=== PATIENT | male | born 1950 | race American Indian/Alaskan Native ===

== ENCOUNTER 2017-03-30 00:42 | Observation (INO) | payer SELFPAY ==
--- NOTE | 2017-03-30 01:06 | ED PDOC ---
HPI: General Adult Time Seen by Provider: 03/30/17 00:47 Chief Complaint (Nursing): Dizziness/Lightheaded Chief Complaint (Provider): Inguinal Hernia History Per: Patient History/Exam Limitations: no limitations Onset/Duration Of Symptoms: Days (365), Intermittent Episodes Have you had recent travel within the past 21 days to any of the following countries: [place], [place], [place] or [place]?: No Current Symptoms Are (Timing): Better Severity: Moderate Location: Right inginual hernia Quality: dizzy when the hernia is "out" Additional History Per: Patient Additional Complaint(s): 66 y/o male here this morning complaining of right inguinal hernia for the last year. He complains that he feels dizzy when the hernia is "out" and "fine" when the hernia is "in." Upon arrival to the ED, he reports that he is feeling better now that he is laying on the bed. Patient reports that the hernia has been evaluated multiple times in the past but he was unable to have it surgically repaired due to insurance issues. No other complaints at this time. Patient admits that he is homeless. Past Medical History Vital Signs: Last Vital Signs Temp 98.5 F 03/30/17 06:18 Pulse 60 03/30/17 06:26 Resp 16 03/30/17 06:26 BP 142/55 L 03/30/17 06:26 Pulse Ox 99 03/30/17 06:26 - Medical History PMH: HTN Denies: Chronic Kidney Disease Other PMH: Hernia - Surgical History Surgical History: No Surg Hx - Family History Family History: States: Unknown Family Hx - Living Arrangements Living Arrangements: Other (homeless) - Home Medications Home Medications: Ambulatory Orders Medication Instructions Recorded Dexamethasone/Tobramycin [Tobradex 1 drop OS QID #1 bottle 06/17/14 0.1%-0.3% 2.5 Ml] Ibuprofen [Motrin] 600 mg PO Q6H PRN #20 tab 06/23/14 - Allergies Allergies/Adverse Reactions: Allergies Allergy/AdvReac Type Severity Reaction Status Date / Time No Known Allergies Allergy Verified 03/29/14 12:25 Review of Systems ROS Statement: Except As Marked, All Systems Reviewed And Found Negative Physical Exam - Reviewed Nursing Documentation Reviewed: Yes Vital Signs Reviewed: Yes - Physical Exam Appears: Positive for: Well, Non-toxic, No Acute Distress Head Exam: Positive for: ATRAUMATIC, NORMAL INSPECTION, NORMOCEPHALIC Skin: Positive for: Normal Color, Warm, DRY Eye Exam: Positive for: EOMI, Normal appearance, PERRL ENT: Positive for: Normal ENT Inspection Neck: Positive for: Normal, Painless ROM Cardiovascular/Chest: Positive for: Regular Rate, Rhythm Respiratory: Positive for: CNT, Normal Breath Sounds Gastrointestinal/Abdominal: Positive for: Bowel Sounds, Soft, Hernia (right inguinal hernia, easy to reduce, soft, mild TTP) Back: Positive for: Normal Inspection Extremity: Positive for: Normal ROM Neurologic/Psych: Positive for: Alert, Oriented - ECG O2 Sat by Pulse Oximetry: 99 (RA) Pulse Ox Interpretation: Normal Medical Decision Making Medical Decision Making: Impression: 66 y/o male with right inguinal hernia. Plan: - UA - Ice pack - Motrin 01:49: patient placed in ED obs. 3:00: Patient reevaluated. He is resting comfortably, vitals are stable. 4:30: Vitals stable. Patient resting comfortably. Scribe Attestation Documented by Dorcas Cervantes acting as a scribe for Dr. Godwin Small. Provider Attestation: All medical record entries made by the Scribe were at my direction and personally dictated by me. I have reviewed the chart and agree that the record accurately reflects my personal performance of the history, physical exam, medical decision making, and the department course for this patient. I have also personally directed, reviewed, and agree with the discharge instructions and disposition. Disposition - Clinical Impression Clinical Impression: Inguinal hernia of right side without obstruction or gangrene - Disposition Disposition: Routine/Home Disposition Time: 02:00 Condition: STABLE
[2017-03-30 06:19] VITALS: BP 142/55; PULSE 60; TEMP 98.5
[2017-03-30 06:27] VITALS: RESP 16; O2SAT 99
== END 2017-03-30 06:26 | disposition home or self-care (01) ==
LOC: H.ER 00:42 → H.EROBSV 01:30
PROVIDERS: ADMIT Emergency Medicine; ATTEND Emergency Medicine
DX: K40.90 Unilateral inguinal hernia, without obstruction or gangrene, not specified as recurrent (principal); I10 Essential (primary) hypertension; Z59.0 Homelessness
CPT/HCPCS: 99284; G0378

== ENCOUNTER 2017-04-10 11:05 | Observation (INO) | payer SELFPAY ==
[2017-04-10] MEDS ORDERED: Albuterol-Ipratrop 3 mg / 0.5 (3 ml) UD INH STA (11:30)
--- NOTE | 2017-04-10 11:48 | RAD ---
HISTORY: cough COMPARISON: 06/17/2014. TECHNIQUE: Chest PA and lateral FINDINGS: LUNGS: No active pulmonary disease. PLEURA: No significant pleural effusion identified. No pneumothorax apparent. CARDIOVASCULAR: No radiographic findings to suggest acute or significant cardiovascular disease. OSSEOUS STRUCTURES: No significant abnormalities. VISUALIZED UPPER ABDOMEN: Normal. OTHER FINDINGS: None. IMPRESSION: No active disease. No significant interval change compared to the prior examination(s).
[2017-04-10] MEDS ORDERED: Albuterol-Ipratrop 3 mg / 0.5 (3 ml) UD ONE ×2 (12:03→16:02)
--- NOTE | 2017-04-10 12:03 | ED PDOC ---
HPI: CCC, URI, Sore Throat Time Seen by Provider: 04/10/17 11:25 Chief Complaint (Nursing): Cough, Cold, Congestion Chief Complaint (Provider): Cough History Per: Patient History/Exam Limitations: no limitations Onset/Duration Of Symptoms: Days (x 2) Current Symptoms Are (Timing): Still Present Additional Complaint(s): Jon is a 66 y/o male who presents to the ED complaining of cough with green- tinged sputum, for the past 2 days. Denies fever and chills. Patient notes that he has abdominal pain when coughing, where his hernia is. He is able to push it back in after coughing. PMD: Unknown Past Medical History Reviewed: Historical Data, Nursing Documentation, Vital Signs Vital Signs: Last Vital Signs Temp 98.1 F 04/10/17 14:31 Pulse 89 04/10/17 14:31 Resp 14 04/10/17 14:31 BP 143/72 04/10/17 14:31 Pulse Ox 98 04/10/17 14:31 - Medical History PMH: HTN Denies: Chronic Kidney Disease - Family History Family History: States: Unknown Family Hx - Social History Current smoker - smoking cessation education provided: Yes Alcohol: None Drugs: Denies - Home Medications Home Medications: Ambulatory Orders Medication Instructions Recorded No Known Home Med 04/10/17 - Allergies Allergies/Adverse Reactions: Allergies Allergy/AdvReac Type Severity Reaction Status Date / Time No Known Allergies Allergy Verified 03/29/14 12:25 Review of Systems ROS Statement: Except As Marked, All Systems Reviewed And Found Negative Constitutional: Negative for: Fever, Chills Respiratory: Positive for: Cough (with sputum). Negative for: Shortness of Breath Gastrointestinal: Positive for: Abdominal Pain (after coughing) Genitourinary Male: Positive for: Other (Hernia) Physical Exam - Reviewed Nursing Documentation Reviewed: Yes Vital Signs Reviewed: Yes - Physical Exam Appears: Positive for: Non-toxic, No Acute Distress Head Exam: Positive for: ATRAUMATIC, NORMAL INSPECTION, NORMOCEPHALIC Skin: Positive for: Normal Color, Warm, Dry Eye Exam: Positive for: EOMI, Normal appearance, PERRL Neck: Positive for: Normal, Painless ROM Cardiovascular/Chest: Positive for: Regular Rate, Rhythm. Negative for: Murmur Respiratory: Positive for: Rhonchi (bilaterally) Gastrointestinal/Abdominal: Positive for: Normal Exam, Soft, Other (right inguinal hernia, reducible). Negative for: Tenderness Back: Positive for: Normal Inspection Extremity: Positive for: Normal ROM. Negative for: Pedal Edema, Deformity Neurologic/Psych: Positive for: Alert, Oriented - Laboratory Results Result Diagrams: 04/10/17 11:50 04/10/17 11:50 - ECG ECG Rhythm: Positive for: Sinus Rhythm (NSR 89bpm no ectopy; T wave inversion lead II-avf/ V3 -V6 new compared to old ekg; reviewed by Dr. Chirinos) O2 Sat by Pulse Oximetry: 97 (RA) Pulse Ox Interpretation: Normal - Radiology X-Ray: Read By Radiologist (kvng) - Progress ED Course And Treament: DUONEB x 1 dose NS 1 liter wide open Solumedrol 125 mg i vx 1 dose d/w [facility] resident Medical Decision Making Medical Decision Making: Time: 11:29 Initial Plan: --EKG --Labs ordered --CXR --Patient given INH Duoneb treatment --Peak Flow pre/post treatment --Pending reevaluation Time: 11:47 Chest X-Ray: FINDINGS: LUNGS: No active pulmonary disease. PLEURA: No significant pleural effusion identified. No pneumothorax apparent. CARDIOVASCULAR: No radiographic findings to suggest acute or significant cardiovascular disease. OSSEOUS STRUCTURES: No significant abnormalities. VISUALIZED UPPER ABDOMEN: Normal. OTHER FINDINGS: None. IMPRESSION: No active disease. No significant interval change compared to the prior examination(s). Time: 12:45 --Patient started on IV fluids Time: 15:13 --Patient admitted inpatient to Observation Telemetry for new EKG changes & renal insufficiency, under the care of Dr. Nichole Scribe Attestation: Documented by April Morel, acting as a scribe for Lurdes Greco PA-C Provider Scribe Attestation: All medical record entries made by the Scribe were at my direction and personally dictated by me. I have reviewed the chart and agree that the record accurately reflects my personal performance of the history, physical exam, medical decision making, and the department course for this patient. I have also personally directed, reviewed, and agree with the discharge instructions and disposition. Disposition - Clinical Impression Clinical Impression: Bronchitis, Hernia, inguinal, Renal insufficiency, Acute electrocardiogram changes - Patient ED Disposition Is Patient to be Admitted: Yes - Disposition Disposition Time: 14:03 Condition: FAIR - Pt Status Changed To: Hospital Disposition Of: Observation
[2017-04-10 12:06] LABS: VENOUS BLOOD GAS BASE EXCESS 0.2 mmol/L (0.0-2.0); VENOUS BLOOD GAS PCO2 42 mmHg (40-60); VENOUS BLOOD PH 7.39 (7.32-7.43)
[2017-04-10 12:08] LABS: BASO % 0.2 % (0.0-2.0); HEMATOCRIT 45.4 % (35.0-51.0); LYMPH # 0.8 K/uL (1.0-4.3); LYMPH % 7.8 % (20.0-40.0); MEAN CORPUSCULAR HEMOGLOBIN 29.3 pg (27.0-31.0); MEAN CORPUSCULAR HGB CONC 33.3 g/dL (33.0-37.0); MEAN PLATELET VOLUME 9.5 fl (7.2-11.7); MONO % 10.6 % (0.0-10.0); NEUT % 81.4 % (50.0-75.0); NRBC % 0.2 % (0.0-0.0); PLATELET COUNT 150 K/uL (130-400); RED CELL DISTRIBUTION WIDTH 14.4 % (11.5-14.5); WHITE BLOOD COUNT 9.9 K/uL (4.8-10.8)
[2017-04-10 12:19] LABS: CALCIUM 9.3 mg/dL (8.4-10.2)
[2017-04-10 12:31] LABS: TROPONIN I 0.038 ng/mL (0.00-0.120)
[2017-04-10] MEDS ORDERED: Sodium Chloride 0.9% 1,000 ML IV STA (12:45)
[2017-04-10 14:57] LABS: NEUTROPHIL 75 % (42-75); REACTIVE LYMPHOCYTES 1 % (0-0); TOTAL CELLS COUNTED 100
[2017-04-10 14:58] LABS: LARGE PLATELETS PRESENT
--- NOTE | 2017-04-10 15:42 | CP.PCM.HP ---
History of Present Illness - History of Present Illness History of Present Illness: 66 year old gentleman presented with complaints of 1 week history of productive cough with associated chills and mild dyspnea. He reports that he has green sputum, cough induced by taking a deep breath. He is also complaining of pain in right inguinal area associated with an inguinal hernia. He was supposed to see a surgeon but never did. Associated with pain when he walks,however easily reducible. This pain is exacerbated by walking, when he feels the hernia the most. He is also complaining he has not been able to sleep for past couple of nights. He denies history of headaches, fevers, sore throat, nasal congestion, ear pain , chest pain, abdominal pain, nausea, vomiting, diarrhea, myalgias. No sick contacts. He is currently homeless. PMH: inguinal hernia Allergies: nkda Medications: none Present on Admission - Present on Admission Any Indicators Present on Admission: No Past Patient History - Infectious Disease Hx of Infectious Diseases: None - Past Social History Alcohol: None Drugs: Denies - CARDIAC Hx Hypertension: Yes - PULMONARY Hx Respiratory Disorders: No - NEUROLOGICAL Hx Neurological Disorder: No - HEENT Hx HEENT Problems: No - RENAL Hx Chronic Kidney Disease: No - ENDOCRINE/METABOLIC Hx Endocrine Disorders: No - HEMATOLOGICAL/ONCOLOGICAL Hx Blood Disorders: No - INTEGUMENTARY Hx Eczema: Yes - MUSCULOSKELETAL/RHEUMATOLOGICAL Hx Musculoskeletal Disorders: No - GASTROINTESTINAL Other/Comment: hernia - PSYCHIATRIC Hx Substance Use: No - SURGICAL HISTORY Other/Comment: hx of hernia - ANESTHESIA Hx Anesthesia: No Meds Allergies/Adverse Reactions: Allergies Allergy/AdvReac Type Severity Reaction Status Date / Time No Known Allergies Allergy Verified 03/29/14 12:25 Physical Exam - Constitutional Appears: Other (appears uncomforatable, coughing with green sputum production. ) - Head Exam Head Exam: ATRAUMATIC, NORMAL INSPECTION, NORMOCEPHALIC - Eye Exam Eye Exam: EOMI, Normal appearance, PERRL Additional comments: arcus senilis - Neck Exam Neck exam: Positive for: Normal Inspection - Respiratory Exam Respiratory Exam: Decreased Breath Sounds (patient unable to take full breath, cough induced with deep inspiration), Wheezes. absent: Accessory Muscle Use, Chest Wall Tenderness, Rales Additional comments: dyspneic - Cardiovascular Exam Cardiovascular Exam: REGULAR RHYTHM, +S1, +S2. absent: Bradycardia, Tachycardia - GI/Abdominal Exam GI & Abdominal Exam: Normal Bowel Sounds, Soft. absent: Distended, Guarding, Tenderness Additional comments: right inguinal hernia - Extremities Exam Extremities exam: Negative for: pedal edema, tenderness Additional comments: hyperpigmented skin changes bilateral lower extremities up to mid lower leg - Neurological Exam Neurological exam: Alert, CN II-XII Intact, Oriented x3, Reflexes Normal - Psychiatric Exam Psychiatric exam: Normal Affect, Normal Mood - Skin Skin Exam: Dry, Intact, Normal Color, Warm Results - Vital Signs Recent Vital Signs: Last Vital Signs Temp 98.1 F 04/10/17 14:31 Pulse 89 04/10/17 14:31 Resp 14 04/10/17 14:31 BP 143/72 04/10/17 14:31 Pulse Ox 98 04/10/17 14:31 - Labs Result Diagrams: 04/10/17 11:50 04/10/17 11:50 Assessment & Plan - Assessment and Plan (Free Text) Assessment: 66 year old male with 1 week history of productive cough likely 2' to acute bronchitis. He is currently afebrile without leukocytosis. He does have very decreased breath sounds and dyspneic with productive cough with green sputum however is saturating well on room air. He was found to have mild acute kidney injury, likely 2' dehydration due to increased insensible losses. #Acute Bronchitis #KOIR #DVT prophylaxis -Monitor respiratory status -[place]bs q4hrs scheduled -mucinex dm q12 -IV hydration, LR @ 150cc/hr -repeat bmp in AM
[2017-04-10] MEDS: Lactated Ringer's 1,000 ML IV SCH ×2 (16:03→23:05)
[2017-04-10] MEDS: Albuterol-Ipratrop 3 mg / 0.5 (3 ml) UD INH SCH ×2 (16:03→23:41)
[2017-04-10] MEDS: guaiFENesin-DM 600-30 mg ER Tab PO SCH (18:04)
[2017-04-11] MEDS: Albuterol-Ipratrop 3 mg / 0.5 (3 ml) UD INH SCH ×2 (04:56→07:37)
[2017-04-11] MEDS: Lactated Ringer's 1,000 ML IV SCH (05:33)
[2017-04-11 08:47] LABS: BLOOD UREA NITROGEN 24 mg/dl (9-20); CALCIUM 8.9 mg/dL (8.4-10.2); CARBON DIOXIDE 29 mmol/L (22-30); CHLORIDE 103 mmol/L (98-107); GFR AFRICAN-AMERICAN > 60; GLUCOSE,RANDOM 158 mg/dL (75-110); POTASSIUM 4.1 MMOL/L (3.6-5.0); SODIUM 137 mmol/l (132-148)
[2017-04-11] MEDS: guaiFENesin-DM 600-30 mg ER Tab PO SCH ×2 (08:52→17:00)
[2017-04-11] MEDS ORDERED: Enoxaparin 40 mg Syringe SC SCH (09:00)
--- NOTE | 2017-04-11 13:19 | CP.PCM.DIS ---
Provider - Provider Date of Admission: 04/10/17 15:13 Attending physician: Mable Nichole MD Primary care physician: [facility] Time Spent in preparation of Discharge (in minutes): 25 Diagnosis - Discharge Diagnosis (1) Bronchitis Status: Acute Hospital Course - Lab Results Lab Results: Most Recent Lab Values WBC 9.9 K/uL (4.8-10.8) 04/10/17 11:50 RBC 5.15 Mil/uL (4.40-5.90) 04/10/17 11:50 Hgb 15.1 g/dL (12.0-18.0) 04/10/17 11:50 Hct 45.4 % (35.0-51.0) 04/10/17 11:50 MCV 88.0 fl (80.0-94.0) 04/10/17 11:50 MCH 29.3 pg (27.0-31.0) 04/10/17 11:50 MCHC 33.3 g/dL (33.0-37.0) 04/10/17 11:50 RDW 14.4 % (11.5-14.5) 04/10/17 11:50 Plt Count 150 K/uL (130-400) 04/10/17 11:50 MPV 9.5 fl (7.2-11.7) 04/10/17 11:50 Neut % (Auto) 81.4 % (50.0-75.0) H 04/10/17 11:50 Lymph % (Auto) 7.8 % (20.0-40.0) L 04/10/17 11:50 [place] % (Auto) 10.6 % (0.0-10.0) H 04/10/17 11:50 Eos % (Auto) 0.0 % (0.0-4.0) 04/10/17 11:50 Baso % (Auto) 0.2 % (0.0-2.0) 04/10/17 11:50 Neut # 8.0 K/uL (1.8-7.0) H 04/10/17 11:50 Lymph # 0.8 K/uL (1.0-4.3) L 04/10/17 11:50 [place] # 1.0 K/uL (0.0-0.8) H 04/10/17 11:50 Eos # 0.0 K/uL (0.0-0.7) 04/10/17 11:50 Baso # 0.0 K/uL (0.0-0.2) 04/10/17 11:50 Neutrophils % (Manual) 75 % (42-75) 04/10/17 11:50 Band Neutrophils % 5 % (0-2) H 04/10/17 11:50 Lymphocytes % (Manual) 6 % (20-50) L 04/10/17 11:50 Reactive Lymphs % 1 % (0-0) H 04/10/17 11:50 Monocytes % (Manual) 12 % (0-10) H 04/10/17 11:50 Platelet Estimate Normal (NORMAL) 04/10/17 11:50 Large Platelets Present 04/10/17 11:50 RBC Morphology Normal (NORMAL) 04/10/17 11:50 pO2 34 mm/Hg (30-55) 04/10/17 11:34 VBG pH 7.39 (7.32-7.43) 04/10/17 11:34 VBG pCO2 42 mmHg (40-60) 04/10/17 11:34 VBG HCO3 24.0 mmol/L 04/10/17 11:34 VBG Total CO2 26.7 mmol/L (22-28) 04/10/17 11:34 VBG O2 Sat (Calc) 66.6 % (40-65) H 04/10/17 11:34 VBG Base Excess 0.2 mmol/L (0.0-2.0) 04/10/17 11:34 VBG Potassium 3.9 mmol/L (3.6-5.2) 04/10/17 11:34 Sodium 133.0 mmol/L (132-148) 04/10/17 11:34 Chloride 100.0 mmol/L (98-107) 04/10/17 11:34 Glucose 142 mg/dL (75-110) H 04/10/17 11:34 Lactate 2.1 mmol/L (0.7-2.1) 04/10/17 11:34 FiO2 21.0 % 04/10/17 11:34 Sodium 137 mmol/l (132-148) 04/11/17 05:30 Potassium 4.1 MMOL/L (3.6-5.0) 04/11/17 05:30 Chloride 103 mmol/L (98-107) 04/11/17 05:30 Carbon Dioxide 29 mmol/L (22-30) 04/11/17 05:30 Anion Gap 10 (10-20) 04/11/17 05:30 BUN 24 mg/dl (9-20) H 04/11/17 05:30 Creatinine 1.0 mg/dL (0.8-1.5) 04/11/17 05:30 Est GFR ( Amer) > 60 04/11/17 05:30 Est GFR (Non-Af Amer) > 60 04/11/17 05:30 Random Glucose 158 mg/dL (75-110) H 04/11/17 05:30 Calcium 8.9 mg/dL (8.4-10.2) 04/11/17 05:30 Troponin I < 0.0120 ng/mL (0.00-0.120) 04/11/17 10:00 NT-Pro-B Natriuret Pep 422 pg/ml (0-900) 04/10/17 11:50 Venous Blood Potassium 3.9 mmol/L (3.6-5.2) 04/10/17 11:34 - Hospital Course Hospital Course: 66 yo M w PMHx of 1 week history of productive cough likely due to acute bronchitis. Afebrile, No elevated WBC, CXR showed no acute disease. Acute respiratory problems greatly improved s/p Duoneb Q4 ROSEANN and methylprednisolone/ prednisone therapies. Pt able to have full conversations including loud laughter by time of discharge. Discharge Exam - Head Exam Head Exam: ATRAUMATIC, NORMAL INSPECTION, NORMOCEPHALIC - Eye Exam Eye Exam: EOMI Pupil Exam: PERRL - Respiratory Exam Respiratory Exam: Wheezes (mild), NORMAL BREATHING PATTERN, UNREMARKABLE Additional comments: speaks full senetences - Cardiovascular Exam Cardiovascular Exam: REGULAR RHYTHM, +S1, +S2, +S4 - GI/Abdominal Exam GI & Abdominal Exam: Normal Bowel Sounds, Soft, Unremarkable. absent: Tenderness - Extremities Exam Extremities exam: normal inspection - Neurological Exam Neurological exam: Alert, Oriented x3 - Skin Skin Exam: Dry, Intact, Normal Color, Warm Discharge Plan - Discharge Medications Prescriptions: Albuterol HFA [Ventolin HFA 90 mcg/actuation (8 g)] 1 puff IH Q4H PRN #1 inhaler PRN Reason: Other predniSONE [predniSONE Tab] 20 mg PO DAILY #5 tab - Follow Up Plan Condition: STABLE Disposition: HOME/ ROUTINE Patient education suggested?: Yes Instructions: Acute Bronchitis (GEN) Additional Instructions: f/u w PMD in 1 week of discharge Take prednisone 20mg Daily for 5 days Albuterol inhaler as needed Return to ED if severe wheezing, shortness of breath, or pain when breathing returns
[2017-04-11] MEDS ORDERED: Albuterol-Ipratrop 3 mg / 0.5 (3 ml) UD INH SCH (14:00)
[2017-04-11 15:34] VITALS: BP 160/69; PULSE 80; RESP 20; TEMP 97.6; O2SAT 98
[2017-04-11] MEDS ORDERED: Pneumococcal 23-Valent Vaccine IM ONE (18:45)
--- NOTE | 2017-04-12 11:21 | CARD ---
APPROVED REPORT EKG Measurement Heart [id number] <Conclusion> Normal sinus rhythm Right atrial enlargement Left ventricular hypertrophy with repolarization abnormality Abnormal ECG
== END 2017-04-11 19:00 | disposition home or self-care (01) ==
LOC: H.ER 11:05 → H.ERHOLD 15:13 → H.TEL 17:02 → UNDODISOB 04-11 13:30
PROVIDERS: ADMIT Family Medicine Geriatric Medicine; ATTEND Family Medicine Geriatric Medicine
DX: J20.9 Acute bronchitis, unspecified (principal); E86.0 Dehydration; F17.200 Nicotine dependence, unspecified, uncomplicated; I10 Essential (primary) hypertension; K40.90 Unilateral inguinal hernia, without obstruction or gangrene, not specified as recurrent; N17.9 Acute kidney failure, unspecified; Z59.0 Homelessness; L30.9 Dermatitis, unspecified; J02.9 Acute pharyngitis, unspecified; R10.9 Unspecified abdominal pain
CPT/HCPCS: 36415; 71020; 80048; 82803; 83880; 84484; 85025; 87040; 93005; 94640; 96361; 96372; 96374; 99285; G0378; J1650; J2930; J7040; J7120

== ENCOUNTER 2017-10-11 16:02 | Inpatient (IN) | payer OTHER ==
--- NOTE | 2017-10-11 17:06 | ED PDOC ---
HPI: General Adult Time Seen by Provider: 10/11/17 16:10 Chief Complaint (Nursing): Abdominal Pain Chief Complaint (Provider): Groin pain History Per: Patient History/Exam Limitations: no limitations Onset/Duration Of Symptoms: Days (x1) Current Symptoms Are (Timing): Still Present Additional Complaint(s): Jon Linn is a 67 year old male, with a past medical history of right inguinal hernia due for repair for a couple of years and intermittent discomfort since, who was brought to the emergency department via EMS complaining of a more persistent pain over the last day. Patient states he is unable to reduce hernia. He denies any vomiting, diarrhea, fever, chills or urinary symptoms. No further medical complaints. PMD: None provided. Past Medical History Reviewed: Historical Data, Nursing Documentation, Vital Signs Vital Signs: Last Vital Signs Temp 97.7 F 10/11/17 16:04 Pulse 80 10/11/17 16:04 Resp 16 10/11/17 16:04 BP 175/82 H 10/11/17 16:04 Pulse Ox 99 10/11/17 18:21 - Medical History PMH: HTN Denies: Chronic Kidney Disease Other PMH: Right inguinal hernia - Surgical History Surgical History: No Surg Hx - Family History Family History: States: Unknown Family Hx - Social History Current smoker - smoking cessation education provided: Yes (Current some days) Alcohol: None Drugs: Denies - Home Medications Home Medications: Ambulatory Orders Medication Instructions Recorded Albuterol HFA [Ventolin HFA 90 1 puff IH Q4H PRN #1 inhaler 04/11/17 mcg/actuation (8 g)] predniSONE [predniSONE Tab] 20 mg PO DAILY #5 tab 04/11/17 - Allergies Allergies/Adverse Reactions: Allergies Allergy/AdvReac Type Severity Reaction Status Date / Time No Known Allergies Allergy Verified 03/29/14 12:25 Review of Systems ROS Statement: Except As Marked, All Systems Reviewed And Found Negative Constitutional: Negative for: Fever, Chills Gastrointestinal: Negative for: Vomiting, Diarrhea Genitourinary Male: Positive for: Other (Groin pain). Negative for: Dysuria, Frequency, Incontinence Physical Exam - Reviewed Nursing Documentation Reviewed: Yes Vital Signs Reviewed: Yes - Physical Exam Appears: Positive for: Non-toxic, No Acute Distress Head Exam: Positive for: ATRAUMATIC, NORMAL INSPECTION, NORMOCEPHALIC Skin: Positive for: Normal Color, Warm, Dry Eye Exam: Positive for: Normal appearance, EOMI, PERRL Neck: Positive for: Painless ROM, Supple Cardiovascular/Chest: Positive for: Regular Rate, Rhythm. Negative for: Murmur Respiratory: Positive for: Normal Breath Sounds. Negative for: Respiratory Distress Gastrointestinal/Abdominal: Positive for: Normal Exam, Soft. Negative for: Tenderness Male Genital Exam: Positive for: hernia mass (Inguinal hernia mildly tender to palpation, partially reducible.) Back: Positive for: Normal Inspection. Negative for: L CVA Tenderness, R CVA Tenderness Extremity: Positive for: Normal ROM. Negative for: Deformity, Swelling Neurologic/Psych: Positive for: Alert, Oriented - Laboratory Results Result Diagrams: 10/11/17 18:14 10/11/17 18:14 - ECG O2 Sat by Pulse Oximetry: 99 (RA) Pulse Ox Interpretation: Normal Medical Decision Making Medical Decision Making: Initial impression: Inguinal hernia Initial Plan: --Abd Pelvis PO & IV Contrast --CMP --General Surgery consult --CBC w/ differential --Omnipaque 240 50 ml PO --Reevaluation -Spoke with Dr. Mann who will have operating room surgical technician evaluate. Surgery resident in ED, see consult ~ Scribe Attestation: Documented by Elie Iqbal, acting as a scribe for Alexey Demarco MD. Provider Scribe Attestation: All medical record entries made by the Scribe were at my direction and personally dictated by me. I have reviewed the chart and agree that the record accurately reflects my personal performance of the history, physical exam, medical decision making, and the department course for this patient. I have also personally directed, reviewed, and agree with the discharge instructions and disposition. Disposition - Clinical Impression Clinical Impression: Inguinal hernia - Patient ED Disposition Is Patient to be Admitted: Transfer of Care - Disposition Disposition: Transfer of Care Disposition Time: 19:00 Condition: STABLE Forms: [facility] (Estonian) Patient Signed Over To: Danny Barnett Handoff Comments: pending CT and dispo. PMD: paty [facility]
[2017-10-11] MEDS ORDERED: Iohexol 240 (50 ml) PO ONE (17:25)
--- NOTE | 2017-10-11 17:49 | CP.PCM.CON ---
<Barrington Newell - Last Filed: 10/12/17 06:24> History of Present Illness - History of Present Illness History of Present Illness: General Surgery Consult Note for Dr. Mann Reason for consult: R inguinal hernia 67 M with no significant PMH presents to [facility] for complain of abdominal pain and R inguinal hernia. Patient was seen and evaluated in the ED. Patient states that he has had these symptoms intermittently for almost 4 years. He states that he was suppose to have surgery but it was canceled last minute for an unknown reason then never followed up. Patient states that his symptoms this time had a sudden onset and have been getting progressively worse over the last day. Patient states he is unable to reduce the hernia this time. He rates pain as moderate. He describes the pain as constant and sharp located in the R groin without radiation. He reports that activity and lifting exacerbates his pain while nothing alleviates it. Denies skin changes, change in bowel habit, change in stool caliber, fever/chills, melena, hematochezia, straining. PMD: Clinic patient PMH: R ingunial hernia Meds: Denies Allergy: NDKA PSH: Denies FH: non-contributory Social: daily smoker - ~1 pack/day for years, denies EtOH/illicit drug use, homeless Review of Systems - Review of Systems All systems: reviewed and no additional remarkable complaints except (12 point ROS negative unless otherwise stated in HPI) Past Patient History - Infectious Disease Hx of Infectious Diseases: None - Past Medical History & Family History Past Medical History?: Yes - Past Social History Alcohol: None Drugs: Denies - CARDIAC Hx Hypertension: Yes - PULMONARY Hx Respiratory Disorders: No - NEUROLOGICAL Hx Neurological Disorder: No - HEENT Hx HEENT Problems: No - RENAL Hx Chronic Kidney Disease: No - ENDOCRINE/METABOLIC Hx Endocrine Disorders: No - HEMATOLOGICAL/ONCOLOGICAL Hx Blood Disorders: No - INTEGUMENTARY Hx Eczema: Yes - MUSCULOSKELETAL/RHEUMATOLOGICAL Hx Musculoskeletal Disorders: No - GASTROINTESTINAL Other/Comment: hernia - PSYCHIATRIC Hx Substance Use: No - SURGICAL HISTORY Other/Comment: hx of hernia - ANESTHESIA Hx Anesthesia: No Meds Allergies/Adverse Reactions: Allergies Allergy/AdvReac Type Severity Reaction Status Date / Time No Known Allergies Allergy Verified 03/29/14 12:25 Physical Exam - Constitutional Appears: No Acute Distress - Head Exam Head Exam: ATRAUMATIC, NORMOCEPHALIC - Eye Exam Eye Exam: EOMI, Normal appearance Pupil Exam: PERRL - ENT Exam ENT Exam: Mucous Membranes Moist - Respiratory Exam Respiratory Exam: NORMAL BREATHING PATTERN - Cardiovascular Exam Cardiovascular Exam: REGULAR RHYTHM - GI/Abdominal Exam GI & Abdominal Exam: Hernia (R inguinal hernia), Normal Bowel Sounds, Soft, Tenderness (RLQ/R groin). absent: Distended, Firm, Guarding, Rebound, Rigid - Extremities Exam Extremities exam: Positive for: normal capillary refill, pedal pulses present. Negative for: calf tenderness - Back Exam Back exam: absent: CVA tenderness (L), CVA tenderness (R) - Neurological Exam Neurological exam: Alert, CN II-XII Intact, Oriented x3 - Psychiatric Exam Psychiatric exam: Normal Affect, Normal Mood - Skin Skin Exam: Dry, Intact, Normal Color, Warm Results - Vital Signs Recent Vital Signs: Last Vital Signs Temp 97.7 F 10/11/17 16:04 Pulse 80 10/11/17 16:04 Resp 16 10/11/17 16:04 BP 175/82 H 10/11/17 16:04 Pulse Ox 99 10/11/17 17:20 - Labs Result Diagrams: 10/11/17 18:14 10/11/17 18:14 Assessment & Plan - Assessment and Plan (Free Text) Assessment: 67 M with R inguinal Hernia Plan: -Plan for OR on Wednesday for R inguinal hernia repair -Will pre op patient in preparation -Analgesics PRN -Medical management as per primary -Discussed with Dr. Mackenzie Newell PGY1 - Date & Time Date: 10/11/17 Time: 05:30 <Calvin Mann - Last Filed: 10/13/17 19:34> Meds - Medications Medications: Current Medications Acetaminophen (Tylenol 325mg Tab) 650 mg PO Q6 PRN PRN Reason: Pain, Mild (1-3) Docusate Sodium (Colace) 100 mg PO BID [facility] Last Admin: 10/13/17 17:00 Dose: Not Given Hydromorphone HCl (Dilaudid) 0.5 mg IVP Q3 PRN PRN Reason: Pain, severe (8-10) Lactated Ringer's (Lactated Ringer's) 1,000 mls @ 100 mls/hr IV .Q10H [facility] Stop: 10/15/17 10:00 Last Admin: 10/13/17 18:23 Dose: Not Given Lactated Ringer's (Lactated Ringer's) 1,000 mls @ 75 mls/hr IV .[id number] [facility] Nicotine (Nicoderm Cq) 1 patch TD DAILY [facility] Last Admin: 10/13/17 08:18 Dose: Not Given Ondansetron HCl (Zofran Inj) 4 mg IVP Q6 PRN PRN Reason: Nausea/Vomiting Oxycodone HCl (Oxycodone Immediate Release Tab) 5 mg PO Q6 PRN PRN Reason: Pain, moderate (4-7) Results - Vital Signs Recent Vital Signs: Last Vital Signs Temp 98.1 F 10/13/17 18:05 Pulse 63 10/13/17 18:05 Resp 18 10/13/17 18:05 BP 131/51 L 10/13/17 18:05 Pulse Ox 96 10/13/17 18:05 - Labs Result Diagrams: 10/13/17 07:35 10/13/17 07:35 Labs: Laboratory Results - last 24 hr 10/13/17 10/13/17 07:35 07:35 WBC 5.9 RBC 4.43 Hgb 13.0 Hct 39.3 MCV 88.8 MCH 29.5 MCHC 33.2 RDW 14.6 H Plt Count 147 Sodium 142 Potassium 4.2 Chloride 104 Carbon Dioxide 26 Anion Gap 16 BUN 20 Creatinine 1.1 Est GFR ( Amer) > 60 Est GFR (Non-Af Amer) > 60 Random Glucose 98 Calcium 8.6 Attending/Attestation - Attestation I have personally seen and examined this patient.: Yes I have fully participated in the care of the patient.: Yes I have reviewed all pertinent clinical information: Yes Notes (Text): Pt was seen and examined at bedside Agree with above note and assessment Pt with Right Inguinal hernia C/o right groin pain Abdomen: Soft ,NT, Right inguinal hernia present Labs and radiology reviewed Ass: Right Inguinal hernia with right groin pain Plan: OR for Right inguinal hernia repair with mesh Consent NPO, IVF IV antibiotics pre op c.w current mx Plan d.w pt in detail Risk and benefit explained in detail.
[2017-10-11] MEDS ORDERED: Iohexol 240 (50 ml) ONE (18:14)
[2017-10-11 18:17] LABS: BASO % 0.8 % (0.0-2.0); EOS # 0.1 K/uL (0.0-0.7); EOS % 1.6 % (0.0-4.0); HEMOGLOBIN 13.8 g/dL (12.0-18.0); LYMPH # 2.2 K/uL (1.0-4.3); LYMPH % 33.7 % (20.0-40.0); MEAN CELL VOLUME 89.1 fl (80.0-94.0); MEAN CORPUSCULAR HEMOGLOBIN 29.4 pg (27.0-31.0); MEAN CORPUSCULAR HGB CONC 32.9 g/dL (33.0-37.0); MEAN PLATELET VOLUME 9.7 fl (7.2-11.7); MONO # 0.5 K/uL (0.0-0.8); MONO % 7.6 % (0.0-10.0); NEUT # 3.6 K/uL (1.8-7.0); NEUT % 56.3 % (50.0-75.0); NRBC % 0.3 % (0.0-0.0); RBC 4.69 Mil/uL (4.40-5.90); RED CELL DISTRIBUTION WIDTH 14.3 % (11.5-14.5); WHITE BLOOD COUNT 6.4 K/uL (4.8-10.8)
[2017-10-11 18:31] LABS: ALB/GLOB RATIO 1.2 (1.0-2.1); ALT/SGPT 24 U/L (21-72); AST/SGOT 22 U/L (17-59); BLOOD UREA NITROGEN 14 mg/dl (9-20); CALCIUM 9.6 mg/dL (8.4-10.2); GFR AFRICAN-AMERICAN > 60; GFR NON-AFRICAN AMERICAN > 60
[2017-10-11] MEDS ORDERED: Iohexol 300 100 ML IJ ONE (20:12)
--- NOTE | 2017-10-11 22:28 | CT ---
EXAM: CT Abdomen and Pelvis With Intravenous Contrast CLINICAL HISTORY: 67 years old, male; Pain; Abdominal pain; Localized; Lower; Patient HX: Rt inguinal hernia; Additional info: R groin pain, hernia TECHNIQUE: Axial computed tomography images of the abdomen and pelvis with intravenous contrast. All CT scans at this facility use one or more dose reduction techniques, viz.: automated exposure control; ma/kV adjustment per patient size (including targeted exams where dose is matched to indication; i.e. head); or iterative reconstruction technique. Coronal and sagittal reformatted images were created and reviewed. CONTRAST: 90 mL of [id number] administered intravenously. COMPARISON: CT - ABD PELVIS PO IV CONTRAST 2014-06-23 05:43 FINDINGS: Limitations: Streak artifact - mild. Lower thorax: Minimal atelectasis. ABDOMEN: Liver: Few probable hepatic cysts. Fatty infiltration. Gallbladder and bile ducts: No calcified stones. No ductal dilation. Pancreas: No ductal dilation. No mass. Spleen: No splenomegaly. Adrenals: Mild hypertrophy of adrenal glands. Kidneys and ureters: No mass. No hydronephrosis. Stomach and bowel: Moderate to large amount of stool within proximal to mid colon. Probable underdistention of distal sigmoid colon. No definite mural thickening. No obstruction. Appendix: No findings to suggest acute appendicitis. PELVIS: Bladder: Unremarkable. Reproductive: Mildly enlarged prostate. Small hydroceles and scrotal calcification. ABDOMEN and PELVIS: Intraperitoneal space: No significant fluid collection. No free air. Bones/joints: No acute fracture. Soft tissues: Small RIGHT inguinal hernia with peripheral soft tissue thickening and small fluid, slightly increased from previously examination. Vasculature: [id number] atherosclerotic disease. No aneurysm. Lymph nodes: No pathologically enlarged lymph nodes. IMPRESSION: 1. Right inguinal hernia. 2. Incidental/non-acute findings are described above.
[2017-10-11] MEDS ORDERED: HYDROmorphone 0.5 mg/0.5 ml ISec IVP PRN (23:05)
--- NOTE | 2017-10-11 23:22 | ED PDOC ---
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
--- NOTE | 2017-10-11 23:51 | CP.PCM.HP ---
History of Present Illness - History of Present Illness History of Present Illness: "my hernia isnt coming down and it hurts more" 67 y/o male, with no significant medical history presented to [facility] ED complaining of worsening right groin pain. He reports having a hernia for approx 4 years, and has been able to reduce it if it have him any issues. Over the past few days he reports it has been bothering him more and more. Pain is located in the right groin region, it is intermittent, 5/10, with 8/10 at times , sharp and burning in character, without radiation. It is alleviated with rest and lying back, but aggravated with prolonged ambulation, deep inspiration, climbing up stairs, and lifting objects. He has not taken any medications. Denies any fever/chills, headaches, changes in vision, CP/SOB/Palpitations, N/V/ D/C, urinary symptoms, melena/hematocheiza, numbness/tingling, rash. PMD: none PMHx: right inguinal hernia x 4 years Meds: none PSurgHx: none FamilyHx: denies any family history of CA, Stroke, GA, DM, CAD Next of Kin: samir Murphy, [phone] Code Status: full code ED Course: Vitals on presentation: T 97.7 F, HR 80, BP 175/82, RR 16, POX 99% RA Labs CBC: wnl CMP: BUN/Cr: 14/1.1 Imaging CXR Abd/pelvic CT: right inguinal hernia, mild/moderate atherosclerotic disease, no enlarged lymph nodes Consult Gen surg Present on Admission - Present on Admission Any Indicators Present on Admission: No History of DVT/PE: No History of Uncontrolled Diabetes: No Urinary Catheter: No Review of Systems - Constitutional Constitutional: absent: As Per HPI, Anorexia, Chills, Daytime Sleepiness, Excessive Sweating, Fatigue, Fever, Frequent Falls, Headache, Increased Appetite , Lethargy, Malaise, Night Sweats, Snoring, Sleep Apnea, Weight Gain, Weight Loss, Weakness, Other - EENT Eyes: absent: As Per HPI, Blind Spots, Blurred Vision, Change in Vision, Decreased Night Vision, Diplopia, Discharge, Dry Eye, Exophthalmos, Floaters, Irritation, Itchy Eyes, Loss of Peripheral Vision, Pain, Photophobia, Requires Corrective Lenses, Sees Flashes, Spots in Vision, Tunnel Vision, Other Visual Disturbances, Loss of Vision, Other Ears: absent: As Per HPI, Decreased Hearing, Ear Discharge, Ear Pain, Tinnitus, Abnormal Hearing, Disequilibrium, Dizziness, Other Nose/Mouth/Throat: absent: As Per HPI, Epistaxis, Nasal Congestion, Nasal Discharge, Nasal Obstruction, Nasal Trauma, Nose Pain, Post Nasal Drip, Sinus Pain, Sinus Pressure, Bleeding Gums, Change in Voice, Dental Pain, Dry Mouth, Dysphagia, Halitosis, Hoarsness, Lip Swelling, Mouth Lesions, Mouth Pain, Odynophagia, Sore Throat, Throat Swelling, Tongue Swelling, Facial Pain, Neck Pain, Neck Mass, Other - Cardiovascular Cardiovascular: absent: As Per HPI, Acrocyanosis, Chest Pain, Chest Pain at Rest , Chest Pain with Activity, Claudication, Diaphoresis, Dyspnea, Dyspnea on Exertion, Edema, Irregular Heart Rhythm, Pain Radiating to Arm/Neck/Jaw, Leg Edema, Leg Ulcers, Lightheadedness, Orthopnea, Palpitations, Paroxysmal Nocturnal Dyspnea, Pedal Edema, Radiating Pain, Rapid Heart Rate, Slow Heart Rate, Syncope, Other - Respiratory Respiratory: absent: As Per HPI, Cough, Dyspnea, Hemoptysis, Dyspnea on Exertion , Wheezing, Snoring, Stridor, Pain on Inspiration, Chest Congestion, Excessive Mucous Production, Change in Mucous Color, Pain with Coughing, Other - Gastrointestinal Gastrointestinal: Abdominal Pain. absent: As Per HPI, Belching, Bloating, Change in Bowel Habits, Change in Stool Character, Coffee Ground Emesis, Constipation, Cramping, Diarrhea, Dyspepsia, Dysphagia, Early Satiety, Excessive Flatus, Fecal Incontinence, Heartburn, Hematemesis, Hematochezia, Loose Stools, Melena, Nausea, Odynophagia, Temesmus, Vomiting, Other - Genitourinary Genitourinary: absent: As Per HPI, Change in Urinary Stream, Difficulty Urinating, Dysuria, Flank Pain, Hematuria, Pyuria, Nocturia, Urinary Incontinence, Urinary Frequency, Urinary Hesitance, Urinary Urgency, Voiding Freq/Small Amts, Freq UTI, Hx Renal/Bladder Calculi, Hx /Renal Surgery, Bladder Distension, Other - Musculoskeletal Musculoskeletal: absent: As Per HPI, Abnormal Gait, Arthralgias, Atrophy, Back Pain, Deformity, Joint Swelling, Limited Range of Motion, Loss of Height, Muscle Cramps, Muscle Weakness, Myalgias, Neck Pain, Numbness, Radiating Pain into Limb, Stiffness, Tingling, Other - Integumentary Integumentary: Dry Skin. absent: As Per HPI, Acne, Alopecia, Bleeding Lesions, Change in Hair, Change in Nails, Change in Pigmentation, Changing Lesions, Erythema, Furuncle, Hirsutism, Lesions, New Lesions, Non-Healing Lesions, Photosensitivity, Pruritus, Rash, Skin Pain, Skin Ulcer, Sores, Striae, Swelling , Unusual Bruising, Wounds, Jaundice, Other - Neurological Neurological: absent: As Per HPI, Abnormal Gait, Abnormal Hearing, Abnormal Movements, Abnormal Speech, Behavioral Changes, Burning Sensations, Confusion, Convulsions, Disequilibrium, Dizziness, Numbness, Focal Weakness, Frequent Falls , Headaches, Lack of Coordination, Loss of Vision, Memory Loss, Paresthesias, Radicular Pain, Restless Legs, Sensory Deficit, Syncope, Tingling, Tremor, Vertigo, Weakness, Other Visual Disturbances, Other - Psychiatric Psychiatric: absent: As Per HPI, Abnormal Sleep Pattern, Anhedonia, Anxiety, Auditory Hallucinations, Behavioral Changes, Change in Appetite, Change in Libido, Confusion, Depression, Difficulty Concentrating, Hallucinations, Homicidal Ideation, Hopelessness, Irritability, Memory Loss, Mood Swings, Panic Attacks, Paranoia, Suicidal Ideation, Visual Hallucinations, Tactile Hallucinations, Other Past Patient History - Infectious Disease Hx of Infectious Diseases: None - Past Medical History & Family History Past Medical History?: Yes - Past Social History Smoking Status: Heavy Smoker > 10 Cigarettes Daily Alcohol: None Drugs: Denies Home Situation {Lives}: Homeless - CARDIAC Hx Hypertension: Yes - PULMONARY Hx Respiratory Disorders: No - NEUROLOGICAL Hx Neurological Disorder: No - HEENT Hx HEENT Problems: No - RENAL Hx Chronic Kidney Disease: No - ENDOCRINE/METABOLIC Hx Endocrine Disorders: No - HEMATOLOGICAL/ONCOLOGICAL Hx Blood Disorders: No - INTEGUMENTARY Hx Eczema: Yes - MUSCULOSKELETAL/RHEUMATOLOGICAL Hx Musculoskeletal Disorders: No - GASTROINTESTINAL Other/Comment: hernia - PSYCHIATRIC Hx Substance Use: No - SURGICAL HISTORY Other/Comment: hx of hernia - ANESTHESIA Hx Anesthesia: No Meds Allergies/Adverse Reactions: Allergies Allergy/AdvReac Type Severity Reaction Status Date / Time No Known Allergies Allergy Verified 03/29/14 12:25 Physical Exam - Constitutional Appears: Non-toxic, No Acute Distress, Unkempt - Head Exam Head Exam: ATRAUMATIC, NORMAL INSPECTION, NORMOCEPHALIC - Eye Exam Eye Exam: EOMI, Normal appearance, PERRL. absent: Conjunctival injection, Nystagmus, Scleral icterus Pupil Exam: NORMAL ACCOMODATION, PERRL - ENT Exam ENT Exam: Mucous Membranes Moist, Normal Exam - Neck Exam Neck exam: Positive for: Full Rom, Normal Inspection. Negative for: Lymphadenopathy, Tenderness - Respiratory Exam Respiratory Exam: Clear to Auscultation Bilateral, NORMAL BREATHING PATTERN. absent: Decreased Breath Sounds, Prolonged Expiratory Phase, Rales, Rhonchi, Wheezes, Respiratory Distress - Cardiovascular Exam Cardiovascular Exam: REGULAR RHYTHM, RRR, +S1, +S2. absent: Tachycardia, Gallop , JVD, Rubs, Systolic Murmur - GI/Abdominal Exam GI & Abdominal Exam: Hernia (right inguinal, nonreducible ), Normal Bowel Sounds , Soft, Tenderness. absent: Distended, Firm, Guarding, Mass, Pulsatile Mass, Rebound, Rigid - Extremities Exam Extremities exam: Positive for: normal capillary refill, normal inspection, pedal pulses present. Negative for: calf tenderness, joint swelling, pedal edema, tenderness - Back Exam Back exam: CVA tenderness (L), CVA tenderness (R) - Neurological Exam Neurological exam: Alert, CN II-XII Intact, Normal Gait, Oriented x3, Reflexes Normal - Psychiatric Exam Psychiatric exam: Normal Affect, Normal Mood - Skin Skin Exam: Dry (hyperkeratosis of LE b/l), Intact, Normal Color, Warm Results - Vital Signs Recent Vital Signs: Last Vital Signs Temp 97.7 F 10/11/17 16:04 Pulse 80 10/11/17 16:04 Resp 16 10/11/17 16:04 BP 175/82 H 10/11/17 16:04 Pulse Ox 99 10/11/17 23:22 - Labs Result Diagrams: 10/11/17 18:14 10/11/17 18:14 Labs: Laboratory Results - last 24 hr 10/11/17 10/11/17 18:14 18:14 WBC 6.4 RBC 4.69 Hgb 13.8 Hct 41.8 MCV 89.1 MCH 29.4 MCHC 32.9 L RDW 14.3 Plt Count 156 MPV 9.7 Neut % (Auto) 56.3 Lymph % (Auto) 33.7 Victoria % (Auto) 7.6 Eos % (Auto) 1.6 Baso % (Auto) 0.8 Neut # (Auto) 3.6 Lymph # (Auto) 2.2 Victoria # (Auto) 0.5 Eos # (Auto) 0.1 Baso # (Auto) 0.0 Sodium 143 Potassium 4.3 Chloride 102 Carbon Dioxide 27 Anion Gap 18 BUN 14 Creatinine 1.1 Est GFR ( Amer) > 60 Est GFR (Non-Af Amer) > 60 Random Glucose 72 L Calcium 9.6 Total Bilirubin 0.7 AST 22 ALT 24 Alkaline Phosphatase 59 Total Protein 7.2 Albumin 4.0 Globulin 3.2 Albumin/Globulin Ratio 1.2 Assessment & Plan - Assessment and Plan (Free Text) Assessment: 67 y/o male with no significant medical history admitted for worsening right inguinal hernia. Plan: 1) Right Inguinal Hernia -as per Gen/Surg, plan for OR for repair on Wednesday -management as per surgical team -pain control -regular diet for now -awaiting offical CXR/EKG reads and remaining labs for medical optimization 2) Diet -regular 3) Prophylaxis -SCDs/ambulation 4) Code Status: -full code
[2017-10-12 06:46] LABS: INR 1.1 (0.9-1.2); PARTIAL THROMBOPLASTIN TIME 32.9 Seconds (25.6-37.1); PROTHROMBIN TIME 12.1 Seconds (9.8-13.1)
--- NOTE | 2017-10-12 07:37 | CARD ---
APPROVED REPORT EKG Measurement Heart [id number] <Conclusion> Normal sinus rhythm Possible Left atrial enlargement Left ventricular hypertrophy with repolarization abnormality
--- NOTE | 2017-10-12 09:48 | CP.PCM.PN ---
<Trevin Garner - Last Filed: 10/12/17 09:44> Subjective - Date & Time of Evaluation Date of Evaluation: 10/12/17 Time of Evaluation: 09:44 - Subjective Subjective: General Surgery Progress Note for Dr. Mann This 67M was seen and examined this AM at bedside. Reports no acute events overnight. He reports difficulty urinating that is relieved by applying pressure to his hernia. Denies fevers chills chest pain nausea vomiting or diarrhea. Objective - Vital Signs/Intake and Output Vital Signs (last 24 hours): Temp Pulse Resp BP Pulse Ox 98.4 F 72 18 136/72 98 10/12/17 07:47 10/12/17 07:47 10/12/17 07:47 10/12/17 07:47 10/12/17 07:47 - Medications Medications: Current Medications Acetaminophen (Tylenol 325mg Tab) 650 mg PO Q6 PRN PRN Reason: Pain, Mild (1-3) Hydromorphone HCl (Dilaudid) 0.5 mg IVP Q3 PRN PRN Reason: Pain, severe (8-10) Nicotine (Nicoderm Cq) 1 patch TD DAILY [facility] Ondansetron HCl (Zofran Inj) 4 mg IVP Q6 PRN PRN Reason: Nausea/Vomiting Pantoprazole Sodium (Protonix Inj) 40 mg IVP DAILY [facility] Last Admin: 10/12/17 08:39 Dose: 40 mg - Labs Labs: 10/11/17 18:14 10/11/17 18:14 PT 12.1 Seconds (9.8-13.1) 10/12/17 06:00 INR 1.1 (0.9-1.2) 10/12/17 06:00 APTT 32.9 Seconds (25.6-37.1) 10/12/17 06:00 - Constitutional Appears: Non-toxic, No Acute Distress - Head Exam Head Exam: ATRAUMATIC, NORMOCEPHALIC - Eye Exam Eye Exam: EOMI, Normal appearance - Respiratory Exam Respiratory Exam: NORMAL BREATHING PATTERN - Cardiovascular Exam Cardiovascular Exam: REGULAR RHYTHM - GI/Abdominal Exam GI & Abdominal Exam: Soft. absent: Firm, Guarding, Rigid, Tenderness - Neurological Exam Neurological Exam: Alert, Awake - Psychiatric Exam Psychiatric exam: Normal Affect - Skin Skin Exam: Dry, Intact Assessment and Plan - Assessment and Plan (Free Text) Assessment: 67 y/o male with right inguinal hernia. Plan: -Plan for OR tomorrow for R inguinal hernia repair -Analgesics PRN -NPO after midnight -AM Labs -D/W Dr. Mackenzie Garner PGY2 <Calvin Mann - Last Filed: 10/13/17 19:36> Objective - Vital Signs/Intake and Output Vital Signs (last 24 hours): Temp Pulse Resp BP Pulse Ox 98.1 F 63 18 131/51 L 96 10/13/17 18:05 10/13/17 18:05 10/13/17 18:05 10/13/17 18:05 10/13/17 18:05 Intake and Output: 10/13/17 10/14/17 18:59 06:59 Intake Total 900 Balance 900 - Medications Medications: Current Medications Acetaminophen (Tylenol 325mg Tab) 650 mg PO Q6 PRN PRN Reason: Pain, Mild (1-3) Docusate Sodium (Colace) 100 mg PO BID [facility] Last Admin: 10/13/17 17:00 Dose: Not Given Hydromorphone HCl (Dilaudid) 0.5 mg IVP Q3 PRN PRN Reason: Pain, severe (8-10) Lactated Ringer's (Lactated Ringer's) 1,000 mls @ 100 mls/hr IV .Q10H [facility] Stop: 10/15/17 10:00 Last Admin: 10/13/17 18:23 Dose: Not Given Lactated Ringer's (Lactated Ringer's) 1,000 mls @ 75 mls/hr IV .[id number] [facility] Nicotine (Nicoderm Cq) 1 patch TD DAILY [facility] Last Admin: 10/13/17 08:18 Dose: Not Given Ondansetron HCl (Zofran Inj) 4 mg IVP Q6 PRN PRN Reason: Nausea/Vomiting Oxycodone HCl (Oxycodone Immediate Release Tab) 5 mg PO Q6 PRN PRN Reason: Pain, moderate (4-7) - Labs Labs: 10/13/17 07:35 10/13/17 07:35 PT 12.1 Seconds (9.8-13.1) 10/12/17 06:00 INR 1.1 (0.9-1.2) 10/12/17 06:00 APTT 32.9 Seconds (25.6-37.1) 10/12/17 06:00 Attending/Attestation - Attestation I have personally seen and examined this patient.: Yes I have fully participated in the care of the patient.: Yes I have reviewed all pertinent clinical information, including history, physical exam and plan: Yes Notes (Text): Pt was seen and examined at bedside Agree with above note and assessment Pt with Right Inguinal hernia OR for Right inguinal hernia repair with mesh Consent NPO, IVF Plan d.w pt in detail Risk and benefit explained in detail.
--- NOTE | 2017-10-12 10:03 | CP.PCM.CON ---
History of Present Illness - History of Present Illness History of Present Illness: Cardiology Consult Pre Op Clearance 67 y/o male scheduled for surgery for Right inguinal hernia Consult called for abnormal EKG Pt has no PMH Denies chest pains/SOB/CARDOZO/palpitations EKG: NSR T wave inversions secondary to LVH No change from prior EKG's Past Patient History - Infectious Disease Hx of Infectious Diseases: None - Past Medical History & Family History Past Medical History?: Yes - Past Social History Alcohol: None Drugs: Denies - CARDIAC Hx Hypertension: Yes - PULMONARY Hx Respiratory Disorders: No - NEUROLOGICAL Hx Neurological Disorder: No - HEENT Hx HEENT Problems: No - RENAL Hx Chronic Kidney Disease: No - ENDOCRINE/METABOLIC Hx Endocrine Disorders: No - HEMATOLOGICAL/ONCOLOGICAL Hx Blood Disorders: No - INTEGUMENTARY Hx Eczema: Yes - MUSCULOSKELETAL/RHEUMATOLOGICAL Hx Musculoskeletal Disorders: No - GASTROINTESTINAL Other/Comment: hernia - GENITOURINARY/GYNECOLOGICAL Hx Genitourinary Disorders: No - PSYCHIATRIC Hx Substance Use: No - SURGICAL HISTORY Other/Comment: hx of hernia - ANESTHESIA Hx Anesthesia: No Meds Allergies/Adverse Reactions: Allergies Allergy/AdvReac Type Severity Reaction Status Date / Time No Known Allergies Allergy Verified 03/29/14 12:25 - Medications Medications: Current Medications Acetaminophen (Tylenol 325mg Tab) 650 mg PO Q6 PRN PRN Reason: Pain, Mild (1-3) Hydromorphone HCl (Dilaudid) 0.5 mg IVP Q3 PRN PRN Reason: Pain, severe (8-10) Nicotine (Nicoderm Cq) 1 patch TD DAILY [facility] Ondansetron HCl (Zofran Inj) 4 mg IVP Q6 PRN PRN Reason: Nausea/Vomiting Pantoprazole Sodium (Protonix Inj) 40 mg IVP DAILY [facility] Last Admin: 10/12/17 08:39 Dose: 40 mg Physical Exam - Constitutional Appears: Well - Neck Exam Neck exam: Positive for: Normal Inspection - Respiratory Exam Respiratory Exam: NORMAL BREATHING PATTERN - Cardiovascular Exam Cardiovascular Exam: REGULAR RHYTHM Results - Vital Signs Recent Vital Signs: Last Vital Signs Temp 98.4 F 10/12/17 07:47 Pulse 72 10/12/17 07:47 Resp 18 10/12/17 07:47 BP 136/72 10/12/17 07:47 Pulse Ox 98 10/12/17 07:47 - Labs Result Diagrams: 10/11/17 18:14 10/11/17 18:14 Labs: Laboratory Results - last 24 hr 10/11/17 10/11/17 10/12/17 18:14 18:14 00:25 WBC 6.4 RBC 4.69 Hgb 13.8 Hct 41.8 MCV 89.1 MCH 29.4 MCHC 32.9 L RDW 14.3 Plt Count 156 MPV 9.7 Neut % (Auto) 56.3 Lymph % (Auto) 33.7 [place] % (Auto) 7.6 Eos % (Auto) 1.6 Baso % (Auto) 0.8 Neut # (Auto) 3.6 Lymph # (Auto) 2.2 [place] # (Auto) 0.5 Eos # (Auto) 0.1 Baso # (Auto) 0.0 PT INR APTT Sodium 143 Potassium 4.3 Chloride 102 Carbon Dioxide 27 Anion Gap 18 BUN 14 Creatinine 1.1 Est GFR ( Amer) > 60 Est GFR (Non-Af Amer) > 60 Random Glucose 72 L Calcium 9.6 Total Bilirubin 0.7 AST 22 ALT 24 Alkaline Phosphatase 59 Total Protein 7.2 Albumin 4.0 Globulin 3.2 Albumin/Globulin Ratio 1.2 Blood Type O POSITIVE Blood Type Confirm Antibody Screen Negative BBK History Checked No verified bt 10/12/17 10/12/17 01:30 06:00 WBC RBC Hgb Hct MCV MCH MCHC RDW Plt Count MPV Neut % (Auto) Lymph % (Auto) [place] % (Auto) Eos % (Auto) Baso % (Auto) Neut # (Auto) Lymph # (Auto) [place] # (Auto) Eos # (Auto) Baso # (Auto) PT 12.1 INR 1.1 APTT 32.9 Sodium Potassium Chloride Carbon Dioxide Anion Gap BUN Creatinine Est GFR ( Amer) Est GFR (Non-Af Amer) Random Glucose Calcium Total Bilirubin AST ALT Alkaline Phosphatase Total Protein Albumin Globulin Albumin/Globulin Ratio Blood Type Blood Type Confirm O POSITIVE Antibody Screen BBK History Checked Assessment & Plan (1) T wave inversion in EKG Assessment and Plan: The T wave inversions are secondary to LVH No change from prior EKG's the patient is cleared for surgery Status: Acute
--- NOTE | 2017-10-12 10:08 | RAD ---
HISTORY: pre op COMPARISON: Chest radiograph dated 04/10/2017. FINDINGS: LUNGS: No active pulmonary disease. PLEURA: No significant pleural effusion identified, no pneumothorax apparent. CARDIOVASCULAR: Normal. OSSEOUS STRUCTURES: Unchanged. VISUALIZED UPPER ABDOMEN: Normal. OTHER FINDINGS: None. IMPRESSION: No active disease.
--- NOTE | 2017-10-12 13:48 | CP.PCM.PN ---
Subjective - Date & Time of Evaluation Date of Evaluation: 10/12/17 Time of Evaluation: 07:30 - Subjective Subjective: 67 y/o male, with no significant medical history seen at bedside after being admitted for painful right inguinal hernia. Patient is AAO x 3 and NAD, seen resting comfortably in bed at time of examination. States that his pain is still present but improved today. Denies any further complaints. Denies any recent N/V/F/C/CP/SOB/D/posterior calf pain when squeezed Objective - Vital Signs/Intake and Output Vital Signs (last 24 hours): Temp Pulse Resp BP Pulse Ox 98.4 F 72 18 136/72 98 10/12/17 07:47 10/12/17 07:47 10/12/17 07:47 10/12/17 07:47 10/12/17 07:47 - Medications Medications: Current Medications Acetaminophen (Tylenol 325mg Tab) 650 mg PO Q6 PRN PRN Reason: Pain, Mild (1-3) Hydromorphone HCl (Dilaudid) 0.5 mg IVP Q3 PRN PRN Reason: Pain, severe (8-10) Nicotine (Nicoderm Cq) 1 patch TD DAILY [facility] Last Admin: 10/12/17 10:11 Dose: 1 patch Ondansetron HCl (Zofran Inj) 4 mg IVP Q6 PRN PRN Reason: Nausea/Vomiting - Labs Labs: 10/11/17 18:14 10/11/17 18:14 PT 12.1 Seconds (9.8-13.1) 10/12/17 06:00 INR 1.1 (0.9-1.2) 10/12/17 06:00 APTT 32.9 Seconds (25.6-37.1) 10/12/17 06:00 - Constitutional Appears: Well, Non-toxic, No Acute Distress - Head Exam Head Exam: ATRAUMATIC, NORMOCEPHALIC - Eye Exam Eye Exam: EOMI, PERRL Pupil Exam: PERRL - ENT Exam ENT Exam: Mucous Membranes Moist - Neck Exam Neck Exam: Normal Inspection - Respiratory Exam Respiratory Exam: NORMAL BREATHING PATTERN - GI/Abdominal Exam GI & Abdominal Exam: absent: Distended, Firm, Guarding, Rigid, Tenderness - Rectal Exam Rectal Exam: Deferred - Extremities Exam Extremities Exam: Normal Inspection - Neurological Exam Neurological Exam: Alert, Awake, Oriented x3 - Psychiatric Exam Psychiatric exam: Normal Affect, Normal Mood - Skin Skin Exam: Intact, Normal Color, Warm Assessment and Plan - Assessment and Plan (Free Text) Assessment: 67 y/o male with no significant medical history admitted for worsening right inguinal hernia. Plan: 1) Right Inguinal Hernia - EKG on admission: NSR, Possible LA enlargement, LVH with repolarization abnormality - Cardiology consult appreciated: Dr. Pack - As per Dr. Pack, patient clear for surgery - CT Abd/Pelvis: Right inguinal hernia - CXR on admission: No acute disease - Gen Surg consult appreciated: Dr. Mann -as per Gen/Surg, plan for OR for repair on Wednesday - Patient to be NPO after midnight tonight -management as per surgical team -pain control 2) Diet -Regular 3) Prophylaxis -SCDs/ambulation 4) Smoking - Nicoderm CQ TD daily - Smoking cessation education gone over with patient 5) Code Status: -full code
[2017-10-13 07:43] LABS: MEAN CELL VOLUME 88.8 fl (80.0-94.0); MEAN CORPUSCULAR HEMOGLOBIN 29.5 pg (27.0-31.0); MEAN CORPUSCULAR HGB CONC 33.2 g/dL (33.0-37.0); RBC 4.43 Mil/uL (4.40-5.90); RED CELL DISTRIBUTION WIDTH 14.6 % (11.5-14.5); WHITE BLOOD COUNT 5.9 K/uL (4.8-10.8)
[2017-10-13 08:22] LABS: BLOOD UREA NITROGEN 20 mg/dl (9-20); CALCIUM 8.6 mg/dL (8.4-10.2); GFR AFRICAN-AMERICAN > 60; GFR NON-AFRICAN AMERICAN > 60
[2017-10-13] MEDS ORDERED: Lactated Ringer's 1,000 ML IV SCH ×2 (12:45→17:00)
[2017-10-13] MEDS ORDERED: Bupivacaine 0.5% Inj(30mL) ONE (13:14)
[2017-10-13] MEDS ORDERED: Lidocaine 1% Inj (20ml) ONE (13:14)
[2017-10-13] MEDS ORDERED: Succinylcholine 200 mg/10 ml Inj IV ONE (13:40)
[2017-10-13] MEDS ORDERED: Rocuronium 10 mg/ml (5 ml) ONE (13:40)
[2017-10-13] MEDS ORDERED: Propofol 10 mg/ml Inj (20 ML) ONE (13:40)
[2017-10-13] MEDS ORDERED: Sevoflurane - Inhalation Anesthetic Liq (250 ml) ONE (13:41)
[2017-10-13] MEDS ORDERED: Lactated Ringer's 500 ML IV ONE ×2 (14:20→15:13)
[2017-10-13] MEDS ORDERED: Lidocaine 1% Inj (20ml) IJ ONE ×2 (14:49)
[2017-10-13] MEDS ORDERED: Bupivacaine 0.5% 50 ML IJ ONE ×4 (14:49→16:02)
[2017-10-13] MEDS ORDERED: oxyCODONE 5 mg Immediate Release Tab PO PRN (16:42)
[2017-10-13] MEDS ORDERED: HYDROmorphone 0.5 mg/0.5 ml ISec IVP PRN (16:47)
--- NOTE | 2017-10-13 17:14 | PCM.SURG1 ---
Surgeon's Initial Post Op Note - Surgeon's Notes Surgeon: Dr. Mann Machine Learning Intern: Ngozi Romero, PGY2 Type of Anesthesia: General Endo Anesthesia Administered By: Dr. Rosario Pre-Operative Diagnosis: right incarcerated inguinal hernia Operative Findings: Right indirect inguinal hernia. See full operative report Post-Operative Diagnosis: same Operation Performed: open right inguinal hernia repair with mesh Specimen/Specimens Removed: none Estimated Blood Loss: EBL {In ML}: 5 Blood Products Given: N/A Drains Used: No Drains Post-Op Condition: Fair Date of Surgery/Procedure: 10/13/17 Time of Surgery/Procedure: 14:00
--- NOTE | 2017-10-13 17:35 | CP.PCM.PN ---
Subjective - Date & Time of Evaluation Date of Evaluation: 10/13/17 Time of Evaluation: 17:33 - Subjective Subjective: 67 y/o male, with no significant medical history seen at bedside for painful right inguinal hernia. Patient is AAO x 3 and NAD, seen resting comfortably in bed at time of examination. States that his pain is still present but controlled. Denies any further complaints. States that he has been NPO since before midnight last night and is aware that he is scheduled for surgery today at 1:30 pm. Denies any recent N/V/F/C/CP/SOB/D/posterior calf pain when squeezed Objective - Vital Signs/Intake and Output Vital Signs (last 24 hours): Temp Pulse Resp BP Pulse Ox 97.5 F L 66 18 126/58 L 95 10/13/17 17:10 10/13/17 17:25 10/13/17 17:25 10/13/17 17:25 10/13/17 17:25 Intake and Output: 10/13/17 10/13/17 06:59 18:59 Intake Total 900 Balance 900 - Medications Medications: Current Medications Acetaminophen (Tylenol 325mg Tab) 650 mg PO Q6 PRN PRN Reason: Pain, Mild (1-3) Docusate Sodium (Colace) 100 mg PO BID [facility] Hydromorphone HCl (Dilaudid) 0.5 mg IVP Q3 PRN PRN Reason: Pain, severe (8-10) Hydromorphone HCl (Dilaudid) 0.5 mg IVP Q5M PRN PRN Reason: Pain, moderate (4-7) Stop: 10/13/17 18:48 Lactated Ringer's (Lactated Ringer's) 1,000 mls @ 100 mls/hr IV .Q10H [facility] Stop: 10/15/17 10:00 Lactated Ringer's (Lactated Ringer's) 1,000 mls @ 75 mls/hr IV .[id number] [facility] Nicotine (Nicoderm Cq) 1 patch TD DAILY [facility] Last Admin: 10/13/17 08:18 Dose: Not Given Ondansetron HCl (Zofran Inj) 4 mg IVP Q6 PRN PRN Reason: Nausea/Vomiting Oxycodone HCl (Oxycodone Immediate Release Tab) 5 mg PO Q6 PRN PRN Reason: Pain, moderate (4-7) - Labs Labs: 10/13/17 07:35 10/13/17 07:35 PT 12.1 Seconds (9.8-13.1) 10/12/17 06:00 INR 1.1 (0.9-1.2) 10/12/17 06:00 APTT 32.9 Seconds (25.6-37.1) 10/12/17 06:00 - Constitutional Appears: Well, Non-toxic, No Acute Distress - Head Exam Head Exam: ATRAUMATIC, NORMOCEPHALIC - Eye Exam Eye Exam: EOMI, PERRL Pupil Exam: PERRL - ENT Exam ENT Exam: Mucous Membranes Moist - Neck Exam Neck Exam: Full ROM, Normal Inspection - Respiratory Exam Respiratory Exam: NORMAL BREATHING PATTERN - GI/Abdominal Exam GI & Abdominal Exam: absent: Distended, Firm, Guarding, Rigid, Tenderness - Rectal Exam Rectal Exam: Deferred - Extremities Exam Extremities Exam: Normal Inspection. absent: Calf Tenderness - Neurological Exam Neurological Exam: Alert, Awake, Oriented x3 - Psychiatric Exam Psychiatric exam: Normal Affect, Normal Mood - Skin Skin Exam: Intact, Normal Color, Warm Assessment and Plan - Assessment and Plan (Free Text) Assessment: 67 y/o male with no significant medical history admitted for right inguinal hernia with increasing pain. Patient to OR today for reparative surgery Plan: 1) Right Inguinal Hernia - Gen Surg consult appreciated: Dr. Mann - Management as per surgical team - Pain control - EKG on admission: NSR, Possible LA enlargement, LVH with repolarization abnormality - Cardiology consult appreciated: Dr. Pack - As per Dr. Pack, patient clear for surgery - CT Abd/Pelvis: Right inguinal hernia - CXR on admission: No acute disease -as per Gen/Surg, patient to OR today for inguinal repair - NPO status confirmed 2) Diet - NPO 3) Prophylaxis -SCDs/ambulation 4) Smoking - Nicoderm CQ TD daily - Smoking cessation education gone over with patient 5) Code Status -full code
--- NOTE | 2017-10-13 18:08 | CP.PCM.DIS ---
Provider - Provider Date of Admission: 10/12/17 16:49 Attending physician: Mable Nichole MD Primary care physician: No Family Provider Consults: General Surgery: Dr. Mann Cardiology Consult: Dr. Pack Time Spent in preparation of Discharge (in minutes): 45 Diagnosis - Discharge Diagnosis (1) Hernia, inguinal Status: Acute Comment: Patient admitted through ED for painful right sided inguinal hernia x 4 years worsening for four days. Patient brought to OR by surgery for inguinal hernia repair. Patient discharged on Percocet 5/325 and Colace. Will follow up with Surgical team next week. Hospital Course - Lab Results Lab Results: Most Recent Lab Values WBC 5.9 K/uL (4.8-10.8) 10/13/17 07:35 RBC 4.43 Mil/uL (4.40-5.90) 10/13/17 07:35 Hgb 13.0 g/dL (12.0-18.0) 10/13/17 07:35 Hct 39.3 % (35.0-51.0) 10/13/17 07:35 MCV 88.8 fl (80.0-94.0) 10/13/17 07:35 MCH 29.5 pg (27.0-31.0) 10/13/17 07:35 MCHC 33.2 g/dL (33.0-37.0) 10/13/17 07:35 RDW 14.6 % (11.5-14.5) H 10/13/17 07:35 Plt Count 147 K/uL (130-400) 10/13/17 07:35 MPV 9.7 fl (7.2-11.7) 10/11/17 18:14 Neut % (Auto) 56.3 % (50.0-75.0) 10/11/17 18:14 Lymph % (Auto) 33.7 % (20.0-40.0) 10/11/17 18:14 [place] % (Auto) 7.6 % (0.0-10.0) 10/11/17 18:14 Eos % (Auto) 1.6 % (0.0-4.0) 10/11/17 18:14 Baso % (Auto) 0.8 % (0.0-2.0) 10/11/17 18:14 Neut # (Auto) 3.6 K/uL (1.8-7.0) 10/11/17 18:14 Lymph # (Auto) 2.2 K/uL (1.0-4.3) 10/11/17 18:14 [place] # (Auto) 0.5 K/uL (0.0-0.8) 10/11/17 18:14 Eos # (Auto) 0.1 K/uL (0.0-0.7) 10/11/17 18:14 Baso # (Auto) 0.0 K/uL (0.0-0.2) 10/11/17 18:14 PT 12.1 Seconds (9.8-13.1) 10/12/17 06:00 INR 1.1 (0.9-1.2) 10/12/17 06:00 APTT 32.9 Seconds (25.6-37.1) 10/12/17 06:00 Sodium 142 mmol/l (132-148) 10/13/17 07:35 Potassium 4.2 MMOL/L (3.6-5.0) 10/13/17 07:35 Chloride 104 mmol/L (98-107) 10/13/17 07:35 Carbon Dioxide 26 mmol/L (22-30) 10/13/17 07:35 Anion Gap 16 (10-20) 10/13/17 07:35 BUN 20 mg/dl (9-20) 10/13/17 07:35 Creatinine 1.1 mg/dl (0.8-1.5) 10/13/17 07:35 Est GFR ( Amer) > 60 10/13/17 07:35 Est GFR (Non-Af Amer) > 60 10/13/17 07:35 Random Glucose 98 mg/dL (75-110) 10/13/17 07:35 Calcium 8.6 mg/dL (8.4-10.2) 10/13/17 07:35 Total Bilirubin 0.7 mg/dl (0.2-1.3) 10/11/17 18:14 AST 22 U/L (17-59) 10/11/17 18:14 ALT 24 U/L (21-72) 10/11/17 18:14 Alkaline Phosphatase 59 U/L (38-126) 03/12/18 18:14 Total Protein 7.2 G/DL (6.3-8.2) 18 18:14 Albumin 4.0 g/dL (3.5-5.0) 18 18:14 Globulin 3.2 gm/dL (2.2-3.9) 18 18:14 Albumin/Globulin Ratio 1.2 (1.0-2.1) 10/11/17 18:14 Blood Type O POSITIVE 10/12/17 00:25 Blood Type Confirm O POSITIVE 10/12/17 01:30 Antibody Screen Negative 10/12/17 00:25 BBK History Checked No verified bt 10/12/17 00:25 - Hospital Course Hospital Course: 67 year old male admitted to the hospital through ED for painful right sided inguinal hernia x 4 years worsening over four days. EKG positive for T-wave inversions. Cleared for surgical intervention via Dr. Pack following cardiology consult. Patient brought to OR on 10/13/17 for repair of inguinal hernia. Per surgery patient was cleared for DC without voiding following surgical procedure. He was sent home with Percocet 5/325 for pain from Surgical Team. Rx for Colace dispensed to patient as well. Patient will f/u in [facility] on and with Dr. Mann on 10/21. - Date & Time of H&P Date of H&P: 10/13/17 Time of H&P: 17:30 Discharge Exam - Head Exam Head Exam: ATRAUMATIC, NORMOCEPHALIC - Eye Exam Eye Exam: EOMI, PERRL Pupil Exam: NORMAL ACCOMODATION - ENT Exam ENT Exam: Mucous Membranes Moist - Neck Exam Neck exam: Normal Inspection - Respiratory Exam Respiratory Exam: NORMAL BREATHING PATTERN - Rectal Exam Rectal Exam: Deferred - Extremities Exam Extremities exam: normal inspection - Neurological Exam Neurological exam: Alert, Oriented x3 - Psychiatric Exam Psychiatric exam: Normal Affect, Normal Mood - Skin Skin Exam: Intact, Normal Color, Warm Discharge Plan - Follow Up Plan Condition: STABLE Disposition: HOME/ ROUTINE Instructions: Inguinal and Femoral (Groin) Hernias, Hernia Repair (DC) Additional Instructions: As per surgery, patient does not need to void prior to discharge Patient may be discharged after eating his meal as long as pain is well controlled Will follow up with Dr. Mann next week Referrals: Calvin Mann MD [Staff Provider] - 10/21/17 [facility] [Outside] - 10/20/17 11:00 am
[2017-10-13 20:00] VITALS: O2SAT 98
[2017-10-13 20:44] VITALS: BP 138/64; PULSE 63; RESP 19; TEMP 98.3
--- NOTE | 2017-10-14 08:32 | OP ---
PROCEDURE DATE: 10/13/2017 PREOPERATIVE DIAGNOSIS: Right inguinal hernia. POSTOPERATIVE DIAGNOSIS: Right indirect inguinal hernia. PROCEDURE: Open right inguinal hernia repair with a mesh. SURGEON: Calvin Mann MD INSPECTOR TOYS: , PGY-2 resident. TYPE OF ANESTHESIA: General endotracheal tube anesthesia. ESTIMATED BLOOD LOSS: Around 10 mL. DRAINS: None. PATHOLOGY: None. COMPLICATIONS: None. INTRAOPERATIVE FINDINGS: The patient had right indirect inguinal hernia. DESCRIPTION OF PROCEDURE: On intraoperative step, this is a 67-year-old male who was diagnosed with a right inguinal hernia and the patient was consented for the right inguinal hernia repair with the mesh, brought to the OR and placed supine on the operating room table. After induction of the anesthesia, the abdomen and the right groin was prepped and draped in the usual sterile fashion. The oblique 5 cm incision was made just above the right inguinal ligament. After incising the skin, subcutaneous tissue and external oblique aponeurosis, upper and lower flap was created. The inguinal ligament was identified, then the conjoint tendon was identified. The dissection was done to free up the pubic tubercle and a spermatic cord structures was from the floor of the inguinal canal, and now the spermatic cord structure was dissected. First external spermatic fascia and internal spermatic fascia was divided and the indirect hernia sac was then required at the internal ring and sac was from the vas deferens and the spermatic cord vessels and that was reduced secondary to peritoneal cavity. The ProLoop mesh plug was placed and the mesh plug was sutured to the surrounding structures and internal ring was recreated. Now, the patch was sutured immediately to the pubic tubercle, inferior to the inguinal ligament, superior to the conjoint tendon, lateral to the lateral abdominal wall muscle and again the internal ring was recreated and after proper implantation of the mesh, the local anesthesia was injected and the fascia was sutured with 0 Vicryl and subcutaneous with 3-0 Vicryl, skin with 4-0 Monocryl, and dry sterile dressing was applied. The patient tolerated the procedure well. Counts of the instrument was correct. There were no apparent complication. Calvin Mann MD
== END 2017-10-13 20:44 | disposition home or self-care (01) | DRG 162 ==
LOC: H.ER 16:02 → H.ERHOLD 23:19 → H.MEDSURG1 10-12 00:54 → OBSVTOIN 10-12 16:49
PROVIDERS: ADMIT Family Medicine Geriatric Medicine; ATTEND Family Medicine Geriatric Medicine
PROC: 0YU50JZ Supplement Right Inguinal Region with Synthetic Substitute, Open Approach (ICD-10-PCS; principal; 2017-10-12)
DX: K40.30 Unilateral inguinal hernia, with obstruction, without gangrene, not specified as recurrent (principal); F17.210 Nicotine dependence, cigarettes, uncomplicated; I10 Essential (primary) hypertension; R94.31 Abnormal electrocardiogram [ECG] [EKG]; Z59.0 Homelessness

== ENCOUNTER 2017-10-17 17:38 | Emergency (ER) | payer OTHER ==
[2017-10-17 17:44] VITALS: RESP 18; TEMP 98.2
[2017-10-17] MEDS ORDERED: Morphine 4 MG/ML VIAL IVP STA (19:02)
[2017-10-17] MEDS ORDERED: Sodium Chloride 0.9% 100 ML ONE (19:14)
[2017-10-17] MEDS ORDERED: Iohexol 300 100 ML IJ ONE (19:14)
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
[2017-10-17] MEDS ORDERED: Iohexol 240 (50 ml) PO ONE (19:37)
[2017-10-17 20:25] LABS: BASO % 0.9 % (0.0-2.0); EOS # 0.1 K/uL (0.0-0.7); EOS % 2.4 % (0.0-4.0); HEMOGLOBIN 12.6 g/dL (12.0-18.0); LYMPH # 1.7 K/uL (1.0-4.3); LYMPH % 30.9 % (20.0-40.0); MEAN CELL VOLUME 89.6 fl (80.0-94.0); MEAN CORPUSCULAR HEMOGLOBIN 29.7 pg (27.0-31.0); MEAN CORPUSCULAR HGB CONC 33.2 g/dL (33.0-37.0); MEAN PLATELET VOLUME 10.2 fl (7.2-11.7); MONO # 0.5 K/uL (0.0-0.8); MONO % 8.5 % (0.0-10.0); NEUT # 3.2 K/uL (1.8-7.0); NEUT % 57.3 % (50.0-75.0); NRBC % 0.1 % (0.0-0.0); RBC 4.23 Mil/uL (4.40-5.90); RED CELL DISTRIBUTION WIDTH 14.2 % (11.5-14.5); WHITE BLOOD COUNT 5.6 K/uL (4.8-10.8)
[2017-10-17 20:26] LABS: SQUAMOUS EPITHIAL < 1 /hpf (0-5); URINE BILIRUBIN NEGATIVE (NEGATIVE); URINE BLOOD SMALL (NEGATIVE); URINE CLARITY CLEAR (Clear); URINE COLOR YELLOW (YELLOW); URINE GLUCOSE (UA) NEG (Normal); URINE LEUKOCYTE ESTERASE NEG Leu/uL (Negative); URINE PROTEIN 30 mg/dL (NEGATIVE); URINE UROBILINOGEN 0.2-1.0 mg/dL (0.2-1.0)
[2017-10-17 20:34] LABS: ALB/GLOB RATIO 1.1 (1.0-2.1); ALBUMIN 3.6 g/dL (3.5-5.0); ALT/SGPT 27 U/L (21-72); AST/SGOT 26 U/L (17-59); BLOOD UREA NITROGEN 16 mg/dl (9-20); CALCIUM 9.4 mg/dL (8.4-10.2); GFR AFRICAN-AMERICAN > 60; GFR NON-AFRICAN AMERICAN > 60
[2017-10-17 20:35] LABS: INR 1.2 (0.9-1.2); PROTHROMBIN TIME 12.8 Seconds (9.8-13.1)
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
[2017-10-17 22:50] VITALS: BP 170/83; PULSE 75; O2SAT 100
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
== END 2017-10-17 23:50 | disposition home or self-care (01) ==
LOC: H.ER 17:38
DX: R10.30 Lower abdominal pain, unspecified (principal); Z98.890 Other specified postprocedural states; I10 Essential (primary) hypertension; V09.20XA Pedestrian injured in traffic accident involving unspecified motor vehicles, initial encounter
CPT/HCPCS: 74177; 80053; 81003; 85025; 85610; 85730; 86850; 86900; 96374; 99284; J2270; Q9966; Q9967

== ENCOUNTER 2017-12-17 13:20 | Emergency (ER) | payer OTHER ==
[2017-12-17 13:59] VITALS: RESP 20; TEMP 98; O2SAT 98
--- NOTE | 2017-12-17 16:10 | ED PDOC ---
HPI: Dental Pain/Injury Time Seen by Provider: 12/17/17 13:40 Chief Complaint (Nursing): Dental Pain Chief Complaint (Provider): Dental Pain History Per: Patient History/Exam Limitations: no limitations Onset/Duration Of Symptoms: Hrs Current Symptoms Are (Timing): Still Present Additional Complaint(s): 67 year old male, with a past medical history of HTN and a hernia repair, presents to the ED complaining of dental pain, abdominal pain and blurry vision. Patient reports concerns of an intermittent lump in the inguinal area. Patient is concerned that it is a possible hernia. Patient reports of intermittent pain since a hernia repair surgery a couple of months ago. Additionally, patient reports of gum pain for the last couple of months. Patient states he has does not take care of his teeth and has not seen a dentist in years. Patient additionally reports of blurry vision in the left eye for about a year and has not seen a specialist. Patient requests for assistance from us to make an appointment with the clinic for blurry vision. Denies chest pain, fever, and headache. PMD: None Provided Past Medical History Reviewed: Historical Data, Nursing Documentation, Vital Signs Vital Signs: Last Vital Signs Temp 98 F 12/17/17 13:54 Pulse 74 12/17/17 13:54 Resp 20 12/17/17 13:54 BP 150/100 H 12/17/17 13:54 Pulse Ox 98 12/17/17 13:54 - Medical History PMH: HTN Denies: Chronic Kidney Disease - Surgical History Surgical History: No Surg Hx - Family History Family History: States: Unknown Family Hx - Immunization History Hx Tetanus Toxoid Vaccination: No Hx Influenza Vaccination: No Hx Pneumococcal Vaccination: No - Home Medications Home Medications: Ambulatory Orders Medication Instructions Recorded No Known Home Med 10/12/17 - Allergies Allergies/Adverse Reactions: Allergies Allergy/AdvReac Type Severity Reaction Status Date / Time No Known Allergies Allergy Verified 12/17/17 13:54 Review of Systems ROS Statement: Except As Marked, All Systems Reviewed And Found Negative Eyes: Positive for: Vision Change (blurry vision) ENT: Positive for: Mouth Pain (gum pain) Gastrointestinal: Positive for: Abdominal Pain (possible lump to inguinal area) Physical Exam - Reviewed Nursing Documentation Reviewed: Yes Vital Signs Reviewed: Yes - Physical Exam Appears: Positive for: Non-toxic, No Acute Distress Head Exam: Positive for: ATRAUMATIC, NORMOCEPHALIC Skin: Positive for: Normal Color, Warm, Dry Eye Exam: Positive for: Normal appearance, EOMI ENT: Positive for: Normal ENT Inspection, Other (Gums are swollen, poor distention, ) Neck: Positive for: Normal Cardiovascular/Chest: Positive for: Regular Rate, Rhythm. Negative for: Murmur Respiratory: Positive for: Normal Breath Sounds. Negative for: Respiratory Distress Gastrointestinal/Abdominal: Positive for: Normal Exam, Soft, Other (no hernia, scar of inguinal hernia from previous surgery ). Negative for: Tenderness Back: Positive for: Normal Inspection Extremity: Positive for: Normal ROM. Negative for: Pedal Edema, Deformity Neurologic/Psych: Positive for: Alert, Oriented. Negative for: Motor/Sensory Deficits - ECG O2 Sat by Pulse Oximetry: 98 (RA) Pulse Ox Interpretation: Normal Medical Decision Making Medical Decision Making: Impression: Chronic right sided inguinal hernia without complications, gingivitis, periodontitis, and chronic blurry vision. 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 Time: 1550 -- Case discussed with family resident. Providers will arrange an appointment for patient with dentist. Scribe Attestation: Documented by Delia Garcia, acting as a scribe for Dr. Danny Barnett MD. Provider Scribe Attestation: All medical record entries made by the Scribe were at my direction and personally dictated by me. I have reviewed the chart and agree that the record accurately reflects my personal performance of the history, physical exam, medical decision making, and the department course for this patient. I have also personally directed, reviewed, and agree with the discharge instructions and disposition. Disposition - Clinical Impression Clinical Impression: Dental caries, Gingivitis, Periodontitis, Blurry vision - Patient ED Disposition Is Patient to be Admitted: No Doctor Will See Patient In The: Office Counseled Patient/Family Regarding: Studies Performed, Diagnosis, Need For Followup - Disposition Referrals: [facility] [Outside] Disposition: Routine/Home Disposition Time: 16:30 Condition: GOOD Additional Instructions: Follow up with your PCP with your appointment. Return for worsening. Instructions: Tooth Decay, Adult, Gingivitis (DC), Periodontal Disease
[2017-12-17 19:13] VITALS: BP 120/70; PULSE 72
== END 2017-12-17 19:12 | disposition home or self-care (01) ==
LOC: H.ER 13:20
DX: K02.9 Dental caries, unspecified (principal); K05.10 Chronic gingivitis, plaque induced; K65.9 Peritonitis, unspecified; H53.8 Other visual disturbances; I10 Essential (primary) hypertension; K40.90 Unilateral inguinal hernia, without obstruction or gangrene, not specified as recurrent

== ENCOUNTER 2018-03-22 02:39 | Emergency (ER) | payer OTHER, SELFPAY ==
[2018-03-22 02:47] VITALS: RESP 16; TEMP 98.6; O2SAT 99
[2018-03-22] MEDS ORDERED: Naproxen 500 MG TAB PO ONE ×2 (03:01→03:06)
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
[2018-03-22 06:34] VITALS: BP 146/74; PULSE 63
== END 2018-03-22 06:45 | disposition home or self-care (01) ==
LOC: H.ER 02:39
DX: M25.562 Pain in left knee (principal); I10 Essential (primary) hypertension

== ENCOUNTER 2018-04-26 02:57 | Emergency (ER) | payer SELFPAY ==
[2018-04-26 02:58] VITALS: BMI 27.3
[2018-04-26 03:00] VITALS: BP 170/78; PULSE 92; RESP 16; TEMP 98.2; O2SAT 100
--- NOTE | 2018-04-26 03:10 | ED PDOC ---
Lower Extremity Pain/Injury Time Seen by Provider: 04/26/18 03:00 Chief Complaint (Nursing): Lower Extremity Problem/Injury Chief Complaint (Provider): dry skin History Per: Patient History/Exam Limitations: no limitations Onset/Duration Of Symptoms: Days (years) Current Symptoms Are (Timing): Still Present Additional Complaint(s): 67 y/o nondomiciled male brought in by EMS for evaluation of dry skin to legs (left>right) x years. Denies fever, leg swelling/redness, numbness/weakness lower extremities. Past Medical History Reviewed: Historical Data, Nursing Documentation, Vital Signs Vital Signs: Last Vital Signs Temp 98.2 F 04/26/18 02:58 Pulse 92 H 04/26/18 02:58 Resp 16 04/26/18 02:58 BP 170/78 H 04/26/18 02:58 Pulse Ox 100 04/26/18 02:58 - Medical History PMH: HTN Denies: Chronic Kidney Disease - Surgical History Surgical History: Hernia Repair - Family History Family History: States: Unknown Family Hx - Immunization History Hx Tetanus Toxoid Vaccination: No Hx Influenza Vaccination: No Hx Pneumococcal Vaccination: No - Home Medications Home Medications: Ambulatory Orders Medication Instructions Recorded Amoxicillin/Clavulanate [Augmentin 1 tab PO BID #20 tab 04/11/18 875 MG-125 MG] Naproxen 375 mg PO Q12 PRN #14 tablet 04/11/18 - Allergies Allergies/Adverse Reactions: Allergies Allergy/AdvReac Type Severity Reaction Status Date / Time No Known Allergies Allergy Verified 04/11/18 05:06 Review of Systems ROS Statement: Except As Marked, All Systems Reviewed And Found Negative Skin: Positive for: Other (dry legs) Physical Exam - Reviewed Nursing Documentation Reviewed: Yes Vital Signs Reviewed: Yes - Physical Exam Appears: Positive for: Well, Non-toxic, No Acute Distress Head Exam: Positive for: ATRAUMATIC, NORMAL INSPECTION, NORMOCEPHALIC Skin: Positive for: Normal Color Eye Exam: Positive for: Normal appearance ENT: Positive for: Normal ENT Inspection Cardiovascular/Chest: Positive for: Regular Rate, Rhythm Respiratory: Positive for: Normal Breath Sounds Extremity: Positive for: Normal ROM, Other (scaling to b/l lower extremities, L>R. No erythema/temp change/edema noted. FROM) Neurologic/Psych: Positive for: Alert, Oriented (3) - ECG O2 Sat by Pulse Oximetry: 100 - Progress ED Course And Treament: Patient educated on findings, discharged with instructions to follow up PMD 2-3 days ADvised trial cetaphil, aquaphor, eucerin Return precautions given Disposition - Clinical Impression Clinical Impression: Dry skin dermatitis - Patient ED Disposition Is Patient to be Admitted: No Counseled Patient/Family Regarding: Diagnosis, Need For Followup - Disposition Referrals: [facility] [Outside] Disposition: Routine/Home Disposition Time: 03:10 Condition: GOOD Instructions: Dermatitis
== END 2018-04-26 05:55 | disposition home or self-care (01) ==
LOC: H.ER 02:57
DX: L85.3 Xerosis cutis (principal)

== ENCOUNTER 2018-05-05 18:27 | Emergency (ER) | payer SELFPAY ==
[2018-05-05 18:27] VITALS: BMI 27.3
[2018-05-05 22:45] LABS: BASO % 0.8 % (0.0-2.0); EOS # 0.2 K/uL (0.0-0.7); EOS % 2.9 % (0.0-4.0); HEMOGLOBIN 13.2 g/dL (12.0-18.0); LYMPH % 35.4 % (20.0-40.0); MEAN CORPUSCULAR HEMOGLOBIN 29.2 pg (27.0-31.0); MEAN CORPUSCULAR HGB CONC 32.7 g/dL (33.0-37.0); MEAN PLATELET VOLUME 9.6 fl (7.2-11.7); MONO # 0.4 K/uL (0.0-0.8); MONO % 7.8 % (0.0-10.0); NEUT # 3.1 K/uL (1.8-7.0); NEUT % 53.1 % (50.0-75.0); NRBC % 0.1 % (0.0-0.0); RBC 4.53 Mil/uL (4.40-5.90); RED CELL DISTRIBUTION WIDTH 14.6 % (11.5-14.5); WHITE BLOOD COUNT 5.7 K/uL (4.8-10.8)
[2018-05-05 22:57] LABS: ALB/GLOB RATIO 1.1 (1.0-2.1); ALBUMIN 3.5 g/dL (3.5-5.0); ALT/SGPT 23 U/L (21-72); AST/SGOT 27 U/L (17-59); BLOOD UREA NITROGEN 19 mg/dl (9-20); CALCIUM 9.1 mg/dL (8.4-10.2); GFR NON-AFRICAN AMERICAN > 60
[2018-05-05 22:58] LABS: URINE CLARITY Clear (Clear); URINE COLOR YELLOW (YELLOW)
[2018-05-05 22:59] LABS: URINE BILIRUBIN NEGATIVE (NEGATIVE); URINE BLOOD NEGATIVE (NEGATIVE); URINE GLUCOSE (UA) NEG (Normal); URINE LEUKOCYTE ESTERASE NEG Leu/uL (Negative); URINE PROTEIN NEGATIVE (NEGATIVE); URINE UROBILINOGEN 0.2 mg/dL (0.2-1.0)
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
[2018-05-06 00:24] VITALS: BP 146/81; PULSE 76; RESP 17; TEMP 98.7; O2SAT 97
== END 2018-05-06 00:24 | disposition home or self-care (01) ==
LOC: H.ER 18:27
DX: R10.9 Unspecified abdominal pain (principal); F10.129 Alcohol abuse with intoxication, unspecified; I10 Essential (primary) hypertension
CPT/HCPCS: 80053; 81003; 85025; 99283; G0480

== ENCOUNTER 2018-05-13 05:27 | Emergency (ER) | payer SELFPAY ==
[2018-05-13 05:28] VITALS: BMI 27.3
--- NOTE | 2018-05-13 05:51 | ED PDOC ---
HPI: Dental Pain/Injury Time Seen by Provider: 05/13/18 05:34 Chief Complaint (Nursing): Dental Pain Chief Complaint (Provider): Dental pain History Per: Patient History/Exam Limitations: no limitations Onset/Duration Of Symptoms: Days Current Symptoms Are (Timing): Still Present Additional Complaint(s): Jon Linn is a 67 year old male, with no significant past medical history, who presents to the emergency department complaining of a toothache to right lower molar. Patient reports he has a long standing cavity there. He took no medications for pain. Patient is non domicile. He denies any other medical complaints. PMD: None provided. Past Medical History Reviewed: Historical Data, Nursing Documentation, Vital Signs Vital Signs: Last Vital Signs Temp 98.5 F 05/13/18 05:38 Pulse 84 05/13/18 05:38 Resp 16 05/13/18 05:38 BP 180/75 H 05/13/18 05:38 Pulse Ox 99 05/13/18 05:38 - Medical History PMH: HTN Denies: Chronic Kidney Disease - Surgical History Surgical History: Hernia Repair - Family History Family History: States: Unknown Family Hx - Immunization History Hx Tetanus Toxoid Vaccination: No Hx Influenza Vaccination: No Hx Pneumococcal Vaccination: No - Home Medications Home Medications: Ambulatory Orders Medication Instructions Recorded Amoxicillin/Clavulanate [Augmentin 1 tab PO BID #20 tab 04/11/18 875 MG-125 MG] Naproxen 375 mg PO Q12 PRN #14 tablet 04/11/18 - Allergies Allergies/Adverse Reactions: Allergies Allergy/AdvReac Type Severity Reaction Status Date / Time No Known Allergies Allergy Verified 05/13/18 05:38 Review of Systems ROS Statement: Except As Marked, All Systems Reviewed And Found Negative ENT: Positive for: Mouth Pain (right lower molar pain) Physical Exam - Reviewed Nursing Documentation Reviewed: Yes Vital Signs Reviewed: Yes - Physical Exam Appears: Positive for: No Acute Distress Head Exam: Positive for: ATRAUMATIC, NORMAL INSPECTION, NORMOCEPHALIC Skin: Positive for: Normal Color, Warm, Dry Eye Exam: Positive for: Normal appearance ENT: Positive for: Other (Large dental cavity in right lower molar, no purulence or drainage. ) Neck: Positive for: Painless ROM Extremity: Positive for: Normal ROM (all extremities). Negative for: Deformity Neurologic/Psych: Positive for: Alert, Oriented - ECG O2 Sat by Pulse Oximetry: 99 (RA) Pulse Ox Interpretation: Normal Medical Decision Making Medical Decision Making: Time: 05:34 Initial Impression: 67 y/o male with dental caries. Initial Plan: --Toradol 30 mg IM -Patient encouraged to follow up with dental clinic he goes to in [facility]. ----- Scribe Attestation: Documented by Elie Iqbal, acting as a scribe for Toi Connors MD. Provider Scribe Attestation: All medical record entries made by the Scribe were at my direction and personally dictated by me. I have reviewed the chart and agree that the record accurately reflects my personal performance of the history, physical exam, medical decision making, and the department course for this patient. I have also personally directed, reviewed, and agree with the discharge instructions and disposition. Disposition - Disposition
[2018-05-13 06:29] VITALS: BP 152/87; PULSE 83; RESP 18; TEMP 98.2; O2SAT 98
== END 2018-05-13 06:32 | disposition home or self-care (01) ==
LOC: H.ER 05:27
DX: K08.89 Other specified disorders of teeth and supporting structures (principal)
CPT/HCPCS: 96372; 99283; J1885

== ENCOUNTER 2018-08-13 13:47 | Emergency (ER) | payer SELFPAY ==
[2018-08-13 13:47] VITALS: BMI 27.3
[2018-08-13 14:05] VITALS: O2SAT 100
--- NOTE | 2018-08-13 15:14 | ED PDOC ---
HPI: General Adult Time Seen by Provider: 08/13/18 14:08 Chief Complaint (Nursing): Groin Pain Chief Complaint (Provider): cough and groin pain History Per: Patient History/Exam Limitations: no limitations Onset/Duration Of Symptoms: Days Current Symptoms Are (Timing): Still Present Additional Complaint(s): 68 y/o undomicidal male presents to the ED for an evaluation of cough. He reports that whenever he coughs every time, he states he has pain on his right groin. Patient has history of hernia repair 2 years ago. Otherwise, he denies vomiting, diarrhea or difficulty urinating. PMD: none provided Past Medical History Reviewed: Historical Data, Nursing Documentation, Vital Signs Vital Signs: Last Vital Signs Temp 98.3 F 08/13/18 14:02 Pulse 84 08/13/18 14:02 Resp 18 08/13/18 14:02 BP 183/90 H 08/13/18 14:02 Pulse Ox 100 08/13/18 14:02 - Medical History PMH: HTN Denies: Chronic Kidney Disease - Surgical History Surgical History: Hernia Repair - Family History Family History: States: Unknown Family Hx - Social History Current smoker - smoking cessation education provided: Yes Alcohol: Occasional Drugs: Denies - Immunization History Hx Tetanus Toxoid Vaccination: No Hx Influenza Vaccination: No Hx Pneumococcal Vaccination: No - Home Medications Home Medications: Ambulatory Orders Medication Instructions Recorded Amoxicillin/Clavulanate [Augmentin 1 tab PO BID #20 tab 04/11/18 875 MG-125 MG] Naproxen 375 mg PO Q12 PRN #14 tablet 04/11/18 guaiFENesin/Dextromethorphan 10 ml PO Q4H PRN #1 bottle 08/13/18 [guaiFENesin-DM] - Allergies Allergies/Adverse Reactions: Allergies Allergy/AdvReac Type Severity Reaction Status Date / Time No Known Allergies Allergy Verified 08/13/18 14:02 Review of Systems ROS Statement: Except As Marked, All Systems Reviewed And Found Negative Constitutional: Negative for: Fever, Chills Respiratory: Positive for: Cough Gastrointestinal: Positive for: Other (groin pain). Negative for: Vomiting, Diarrhea Genitourinary Male: Negative for: Dysuria, Frequency, Incontinence, Hematuria Psych: Negative for: Suicidal ideation (homicidal ideation) Physical Exam - Reviewed Nursing Documentation Reviewed: Yes Vital Signs Reviewed: Yes - Physical Exam Appears: Positive for: Non-toxic, No Acute Distress Head Exam: Positive for: ATRAUMATIC, NORMAL INSPECTION, NORMOCEPHALIC Skin: Positive for: Normal Color, Warm, Dry. Negative for: Rash Eye Exam: Positive for: Normal appearance, EOMI, PERRL ENT: Positive for: Normal ENT Inspection Neck: Positive for: Normal, Painless ROM, Supple. Negative for: Decreased ROM Cardiovascular/Chest: Positive for: Regular Rate, Rhythm. Negative for: Murmur Respiratory: Positive for: Normal Breath Sounds. Negative for: Decreased Breath Sounds, Wheezing, Respiratory Distress Gastrointestinal/Abdominal: Positive for: Soft, Other (mass on the right lower pelvic area ). Negative for: Tenderness, Guarding Back: Positive for: Normal Inspection. Negative for: L CVA Tenderness, R CVA Tenderness Extremity: Positive for: Normal ROM. Negative for: Tenderness, Pedal Edema, Deformity Neurologic/Psych: Positive for: Alert, Oriented (x3). Negative for: Motor/Sensory Deficits - Laboratory Results Result Diagrams: 08/13/18 15:10 08/13/18 15:10 - ECG O2 Sat by Pulse Oximetry: 100 (RA) Pulse Ox Interpretation: Normal Medical Decision Making Medical Decision Making: Time: 1437 Initial impression: cough and groin pain Plan: ABD & Pelvis IV contrast only CT EKG CMP ED urine dipstick CBC w/ differential PTT Prothrombin time Chest two views [RAD] Urinalysis Reevaluation 1635 CXR FINDINGS: LUNGS: Hyperinflation, manifestations of COPD. No active pulmonary disease. PLEURA: No significant pleural effusion identified. No pneumothorax apparent. CARDIOVASCULAR: No aortic atherosclerotic calcification present. No radiographic findings to suggest acute or significant cardiovascular disease. OSSEOUS STRUCTURES: No significant abnormalities. VISUALIZED UPPER ABDOMEN: Normal. OTHER FINDINGS: None. IMPRESSION: No active disease. No significant interval change compared to the prior examination(s). 1809 EXAM: CT Abdomen with IV contrast CLINICAL HISTORY: Pain TECHNIQUE: Axial computed tomography images of the abdomen and pelvis with intravenous contrast. 320.76 mGy-cm CONTRAST: With; [id number] 95ML COMPARISON: None provided. FINDINGS: LUNG BASES: The lung bases appear clear. No pleural effusions are seen. LIVER: There is a 1.2 cm cyst within the right lobe of the liver. GALLBLADDER AND BILE DUCTS: The gallbladder appears within normal limits. No radioopaque gallstones are seen. No biliary ductal dilatation is evident. PANCREAS: Unremarkable. SPLEEN: Unremarkable. ADRENAL GLANDS: Unremarkable. KIDNEYS, URETERS, AND BLADDER: The kidneys appear within normal limits. There is no hydronephrosis or hydrouret er. No urinary calculi are seen. Prostate gland is moderately enlarged and lobulated in contour and indents the base of the bladder. The STOMACH AND BOWEL: Unremarkable appearance of the stomach and bowel. No evidence of bowel obstruction. No evidence suggesting enteritis or colitis. APPENDIX: No evidence of acute appendicitis on CT examination. PERITONEUM: No free fluid. No free air. LYMPH NODES: No lymphadenopathy is evident. VASCULATURE: No evidence of abdominal aortic aneurysm. BONES: No aggressive appearing osseous lesion. No acute osseous pathology evident. Degenerative changes present lower lumbar spine with narrowing of the L5-S1 disc space. IMPRESSION: Small proximal approximate 1.2 cm cyst within the right lobe of the liver. Markedly enlarged prostate gland which is lobular in contour and indents the base of the bladder. Degenerative changes lower lumbar spine with chronic disc disease L5-S1 level. Electronically signed on Aug 13, 2018 6:10:19 PM EST by: Trell Hyde M.D., Certified by [employer], Diagnostic Radiology Scribe Attestation: Documented by Courtney Caldwell, acting as a scribe for Apurva Rodriguez MD Provider Scribe Attestation: All medical record entries made by the Scribe were at my direction and personally dictated by me. I have reviewed the chart and agree that the record accurately reflects my personal performance of the history, physical exam, medical decision making, and the department course for this patient. I have also personally directed, reviewed, and agree with the discharge instructions and disposition. Disposition - Clinical Impression Clinical Impression: Cough, Enlarged prostate - Disposition Referrals: formerly [facility] [Outside] Alexey Swanson Jr., MD [Staff Provider] - Disposition: Routine/Home Disposition Time: 18:35 Condition: STABLE Prescriptions: guaiFENesin/Dextromethorphan [guaiFENesin-DM] 10 ml PO Q4H PRN #1 bottle PRN Reason: Cough Instructions: Benign Prostatic Hyperplasia (Enlarged Prostate), Cough in Adults Forms: [facility] ([place])
[2018-08-13 15:26] LABS: BASO % 0.7 % (0.0-2.0); EOS # 0.1 K/uL (0.0-0.7); EOS % 2.2 % (0.0-4.0); HEMOGLOBIN 13.7 g/dL (12.0-18.0); LYMPH # 1.6 K/uL (1.0-4.3); MEAN CELL VOLUME 90.1 fl (80.0-94.0); MEAN CORPUSCULAR HEMOGLOBIN 29.5 pg (27.0-31.0); MEAN CORPUSCULAR HGB CONC 32.7 g/dL (33.0-37.0); MEAN PLATELET VOLUME 10.6 fl (7.2-11.7); MONO # 0.4 K/uL (0.0-0.8); MONO % 6.2 % (0.0-10.0); NEUT # 3.8 K/uL (1.8-7.0); NEUT % 63.9 % (50.0-75.0); NRBC % 0.1 % (0.0-0.0); RBC 4.63 Mil/uL (4.40-5.90); RED CELL DISTRIBUTION WIDTH 14.8 % (11.5-14.5); WHITE BLOOD COUNT 5.9 K/uL (4.8-10.8)
[2018-08-13 15:33] LABS: SQUAMOUS EPITHIAL < 1 /hpf (0-5); URINE BILIRUBIN NEGATIVE (NEGATIVE); URINE BLOOD NEGATIVE (NEGATIVE); URINE CLARITY CLEAR (Clear); URINE COLOR STRAW (YELLOW); URINE GLUCOSE (UA) NEG (NEGATIVE); URINE LEUKOCYTE ESTERASE NEG Leu/uL (Negative); URINE PROTEIN NEGATIVE (NEGATIVE); URINE UROBILINOGEN 0.2-1.0 mg/dL (0.2-1.0)
[2018-08-13 15:35] LABS: BLOOD UREA NITROGEN 19 mg/dl (9-20); CALCIUM 9.4 mg/dL (8.4-10.2); GFR NON-AFRICAN AMERICAN > 60; INR 1.1; PROTHROMBIN TIME 12.1 Seconds (9.8-13.1)
[2018-08-13 15:38] LABS: PARTIAL THROMBOPLASTIN TIME 36.9 Seconds (25.6-37.1)
[2018-08-13 15:47] LABS: ALB/GLOB RATIO 1.2 (1.0-2.1); ALBUMIN 4.4 g/dL (3.5-5.0); ALT/SGPT 23 U/L (21-72); AST/SGOT 49 U/L (17-59)
--- NOTE | 2018-08-13 16:38 | RAD ---
Date of service: 08/13/2018 HISTORY: Cough COMPARISON: 10/11/2017 TECHNIQUE: Chest PA and lateral FINDINGS: LUNGS: Hyperinflation, manifestations of COPD. No active pulmonary disease. PLEURA: No significant pleural effusion identified. No pneumothorax apparent. CARDIOVASCULAR: No aortic atherosclerotic calcification present. No radiographic findings to suggest acute or significant cardiovascular disease. OSSEOUS STRUCTURES: No significant abnormalities. VISUALIZED UPPER ABDOMEN: Normal. OTHER FINDINGS: None. IMPRESSION: No active disease. No significant interval change compared to the prior examination(s).
[2018-08-13] MEDS ORDERED: Iohexol 300 100 ML IJ ONE (17:03)
[2018-08-13] MEDS ORDERED: Sodium Chloride 0.9% 50 ML IV ONE (17:03)
[2018-08-13 18:41] VITALS: BP 167/87; PULSE 69; RESP 16; TEMP 98.5
--- NOTE | 2018-08-14 11:27 | CT ---
Date of service: 08/13/2018 PROCEDURE: CT Abdomen and Pelvis with contrast HISTORY: R groin pain/mass COMPARISON: None. TECHNIQUE: Following the intravenous administration of iodinated contrast material, a CT examination of the abdomen and pelvis performed from the domes of the diaphragms to the symphysis pubis with reformatted datasets provided in axial, sagittal and coronal planes. Oral contrast was not administered as per referring physician request. Coronal and sagittal reformats were generated. Contrast dose: Omnipaque 300, 95 cc Radiation dose: Total exam DLP = 320.76 mGy-cm. This CT exam was performed using one or more of the following dose reduction techniques: Automated exposure control, adjustment of the mA and/or kV according to patient size, and/or use of iterative reconstruction technique. FINDINGS: LOWER THORAX: Unremarkable. LIVER: A small lucency is identified at the right lobe liver 1.2 cm greatest dimension, stable in the interval. The liver is otherwise unremarkable appearing. GALLBLADDER AND BILE DUCTS: Unremarkable. PANCREAS: Unremarkable. No gross lesion or ductal dilatation. SPLEEN: Unremarkable. ADRENALS: Unremarkable. No mass. KIDNEYS AND URETERS: Unremarkable. No hydronephrosis. No solid mass. VASCULATURE: Unremarkable. No aortic aneurysm. No aortic atherosclerotic calcification or mural plaque present. BOWEL: There is no bowel obstruction appreciable. Lack of oral contrast limits evaluation the gastrointestinal tract. Liquid fecal material seen throughout the large bowel with fluid seen scattered throughout the small bowel as well. No pericolic or perienteric reactive change appreciable. Further clinical correlation recommended. APPENDIX: Not clearly identified. Clinically correlate further. No direct CT sign of appendicitis at this time. PERITONEUM: Unremarkable. No free fluid. No free air. LYMPH NODES: Shotty bilateral inguinal lymph nodes are appreciated slightly greater the right than left sides without fluid collection or abscess appreciable. Etiology of right groin mass is unclear though could be a function of mild lymphadenopathy. BLADDER: Unremarkable. REPRODUCTIVE: Enlarged prostate gland reiterated. BONES: No acute fracture. OTHER FINDINGS: None. IMPRESSION: Potential limited lymphadenopathy right groin. No abscess or fluid collection associated. No right inguinal hernia appreciable. Liquid fecal material seen throughout the large bowel. Evaluation of the gastrointestinal tract is limited due to the lack of oral contrast administration. Stable small lucency right lobe liver probably reflecting a cyst. Enlarged prostate gland reiterated. Concordant preliminary report from [facility], 08/13/2018 6:10 p.m..
--- NOTE | 2018-08-14 22:50 | CARD ---
APPROVED REPORT Date of service: 08/13/2018 EKG Measurement Heart [id number] <Conclusion> Normal sinus rhythm Possible Left atrial enlargement Left ventricular hypertrophy with repolarization abnormality Abnormal ECG
== END 2018-08-13 19:25 | disposition home or self-care (01) ==
LOC: H.ER 13:47
DX: R05 Cough (principal); N40.1 Benign prostatic hyperplasia with lower urinary tract symptoms; I10 Essential (primary) hypertension; F17.200 Nicotine dependence, unspecified, uncomplicated
CPT/HCPCS: 71046; 74177; 80053; 81003; 85025; 85610; 85730; 93005; 99283; Q9967